=== PATIENT | male | born 1965 | race Caucasian/White ===

== ENCOUNTER 2020-02-13 19:36 | Emergency (ER) | payer BC ==
[~2020-02-13] VITALS: Ht 188 cm; Wt 111.4 kg
[2020-02-13 19:42] VITALS: BP 166/126
[2020-02-13] MEDS ORDERED: HYDROcodone/acetaminophen 10/325mg tab PO ONE (19:45)
[2020-02-13] MEDS ORDERED: TETanus/Pertussis (Acell)/Diphther VAC/PF (Tdap-Adult) 0.5ml syringe IMVAC ONE (19:45)
[2020-02-13] MEDS ORDERED: LIDOcaine 1% W/epiNEPHrine 1:100,000 20ml vial SQ ONE (20:05)
[2020-02-13] MEDS ORDERED: AMOX-422 PO (20:19)
[2020-02-13] MEDS ORDERED: amox tr/potassium clavulanate 875/125mg TAB PO ONE (20:20)
== END 2020-02-13 20:58 | disposition home or self-care (01) ==
LOC: ER 19:37
DX: S61.412A Laceration without foreign body of left hand, initial encounter (principal); Z79.2 Long term (current) use of antibiotics; X58.XXXA Exposure to other specified factors, initial encounter; Y93.89 Activity, other specified; Y92.89 Other specified places as the place of occurrence of the external cause; Y99.8 Other external cause status
CPT/HCPCS: 12001; 73130; 90471; 90715; 99283

== ENCOUNTER 2020-02-16 13:00 | Outpatient (CLI) | payer BC ==
[~2020-02-16 13:00] MED LIST: AMOX-422 PO
== END 2020-02-16 14:08 | disposition home or self-care (01) ==
LOC: WOUND CARE 13:00 → EDSTATUS 13:20 → WOUND CARE 14:08
PROVIDERS: ATTEND Nurse Practitioner
DX: S61.402A Unspecified open wound of left hand, initial encounter (principal); L98.492 Non-pressure chronic ulcer of skin of other sites with fat layer exposed; S61.432A Puncture wound without foreign body of left hand, initial encounter; F17.200 Nicotine dependence, unspecified, uncomplicated; X58.XXXA Exposure to other specified factors, initial encounter; Y93.89 Activity, other specified; Y92.89 Other specified places as the place of occurrence of the external cause; Y99.8 Other external cause status
CPT/HCPCS: G0463

== ENCOUNTER 2020-02-26 13:52 | Day surgery (SDC) | payer BC ==
[2020-02-26] MEDS ORDERED: LIDOcaine 2% 5ml jelly ONE (14:16)
== END 2020-02-26 14:26 | disposition home or self-care (01) ==
LOC: WOUND CARE 13:52
PROVIDERS: ATTEND Nurse Practitioner
DX: S61.432D Puncture wound without foreign body of left hand, subsequent encounter (principal); L98.492 Non-pressure chronic ulcer of skin of other sites with fat layer exposed; F17.200 Nicotine dependence, unspecified, uncomplicated; Z79.2 Long term (current) use of antibiotics; X58.XXXD Exposure to other specified factors, subsequent encounter
CPT/HCPCS: G0463

== ENCOUNTER 2023-01-26 12:57 | Day surgery (SDC) | payer BC ==
[2023-01-22 09:06] LABS: BASOPHILS % (AUTO) 0.6 % (0-1); EOSINOPHILS # (AUTO) 0.1 X10'3 (0-0.9); EOSINOPHILS % (AUTO) 1.7 % (0-6); HEMATOCRIT 49.6 % (42.0-52.0); HEMOGLOBIN 16.6 g/dl (14.0-17.9); LYMPHOCYTES # (AUTO) 3.3 X10'3 (1.1-4.8); LYMPHOCYTES % (AUTO) 38.8 % (21-51); MEAN CORPUSCULAR HEMOGLOBIN 31.1 PG (27.0-31.0); MEAN CORPUSCULAR HGB CONC 33.5 g/dL (33.0-36.5); MEAN CORPUSCULAR VOLUME 92.8 FL (78-98); MEAN PLATELET VOLUME 7.4 FL (7.4-10.4); MONOCYTES # (AUTO) 0.5 X10'3 (0-0.9); MONOCYTES % (AUTO) 6.2 % (2-12); NEUTROPHILS # (AUTO) 4.5 X10'3 (1.8-7.7); NEUTROPHILS % (AUTO) 52.7 % (42-75); PLATELET COUNT 251 X10'3 (140-440); RED BLOOD COUNT 5.35 X10'6 (4.70-6.10); WHITE BLOOD COUNT 8.5 X10'3 (4.5-11.0)
[2023-01-22 09:15] LABS: APTT 28 SECONDS (22-32)
[2023-01-22 09:21] LABS: ALBUMIN 4.1 G/DL (3.4-5.0); CALCIUM 9.2 MG/DL (8.5-10.1); CHOL/HDL RATIO 6.4 (0.00-4.99); CHOLESTEROL 256 MG/DL (0-200); CREATININE 0.77 MG/DL (0.60-1.10); GLUCOSE 120 MG/DL (70-104); HDL CHOLESTEROL 40 MG/DL (35-60); LDL CHOLESTEROL 149 MG/DL (50-100); POTASSIUM 4.4 MMOL/L (3.5-5.1); TOTAL CARBON DIOXIDE 29.8 MMOL/L (24-32); TRIGLYCERIDES 361 MG/DL (20-135); eGFR > 90 ML/MIN
[2023-01-22 09:25] LABS: BLOOD UREA NITROGEN 18 MG/DL (7-18); BUN/CREATININE RATIO 23.4 (10.0-20.0)
[2023-01-22 09:27] LABS: ANION GAP 5 (8-16); CHLORIDE 105 MMOL/L (99-107); SODIUM 140 MMOL/L (135-145)
[~2023-01-26] VITALS: Ht 188 cm; Wt 127.2 kg
[2023-01-26] VITALS (7 sets, daily range): BP systolic 135–158; BP diastolic 91–109
[2023-01-26] MEDS ORDERED: normal saline 1,000 ML IV SCH (13:15)
[2023-01-26] MEDS ORDERED: LORazepam 0.5 MG tablet PO PRN (13:15)
[2023-01-26] MEDS ORDERED: diphenhydrAMINE 25mg capsule PO PRN (13:15)
[2023-01-26] MEDS ORDERED: albuterol sulfate IH (13:34)
[2023-01-26] MEDS ORDERED: ASPI-803 PO (13:34)
[2023-01-26] MEDS ORDERED: HYDR-3972 PO (13:34)
[2023-01-26] MEDS ORDERED: verapamil 2.5 mg/ml inj IV ONE (14:36)
[2023-01-26] MEDS ORDERED: fentaNYL/PF 50MCG/1 ML 2ML syringe ONE (14:36)
[2023-01-26] MEDS ORDERED: midazolam 1 mg/ML 2ml injection ONE (14:37)
[2023-01-26] MEDS ORDERED: heparin 1,000 UNITS/NS 500ml 500 ML ONE ×2 (14:37)
[2023-01-26] MEDS ORDERED: heparin 1,000unit/ml 10ml vial 10 ML ONE (14:37)
[2023-01-26] MEDS ORDERED: iohexol 350MG/ML 100ml bottle IV ONE (14:37)
[2023-01-26] MEDS ORDERED: nitroGLYCERIN-Tridil 50MG/D5W 250 ML IV ONE (14:37)
[2023-01-26] MEDS ORDERED: LIDOcaine 1% (10mg/ml) 2ml vial ONE (15:21)
[2023-01-26] MEDS ORDERED: iohexol 350 MG/ML 50ML vial IV ONE (16:37)
[2023-01-26 16:39] LABS: ISTAT HGB ART 16.7 g/dl (14.0-17.9); ISTAT Hct ART 49 %PCV (42-52); ISTAT O2 SATURATION ARTERIAL 92 % (95-98); ISTAT SOURCE ART
[2023-01-26] MEDS ORDERED: HYDROcodone/acetaminophen 10/325mg tab PO PRN (17:20)
[2023-01-26] MEDS ORDERED: HYDROcodone/acetaminophen 5mg/325mg tablet PO PRN (17:20)
[2023-01-27 07:14] LABS: ISTAT Hct MIX 48 %PCV (42-52); ISTAT O2 SATURATION MIX VENOUS 65 % (60-80); ISTAT SOURCE VEN
[2023-02-12] MEDS ORDERED: ACET-2319 PO (15:01)
[2023-02-12] MEDS ORDERED: [UNRECOGNIZED DRUG - OTHER] (15:01)
[2023-02-12] MEDS ORDERED: MULT-1074 PO (16:31)
[2023-02-12] MEDS ORDERED: ALBU8HFA PO (18:14)
== END 2023-01-26 19:00 | disposition home or self-care (01) ==
LOC: SSTAY O 12:57
PROVIDERS: ATTEND Student in an Organized Health Care Education/Training Program
DX: I35.0 Nonrheumatic aortic (valve) stenosis (principal); I25.10 Atherosclerotic heart disease of native coronary artery without angina pectoris; I10 Essential (primary) hypertension; G89.29 Other chronic pain; E66.9 Obesity, unspecified; Z68.36 Body mass index [BMI] 36.0-36.9, adult; Z79.899 Other long term (current) drug therapy; Z79.01 Long term (current) use of anticoagulants
CPT/HCPCS: 36415; 80048; 80061; 82803; 85014; 85025; 85610; 85730; 93005; 93456; 99152; 99153; C1894; J1644; J2250; J3010; J3490; J7030; Q0163; Q9967; 93460; A6258; A6402; C1751

== ENCOUNTER 2023-02-15 08:00 | Inpatient (IN) | payer BC ==
[2023-02-12 13:43] LABS: CLARITY,URINE CLEAR (Clear); COLOR,URINE YELLOW (Yellow); GLUCOSE, URINE NEGATIVE (Neg); KETONES,URINE TRACE mg/dl (Neg); LEUKOCYTE ESTERASE ,URINE NEGATIVE (Neg); NITRITES, URINE NEGATIVE (Neg); OCCULT BLOOD,URINE NEGATIVE (Neg); PH,URINE 6.5 (4.8-8.0); PROTEIN,URINE NEGATIVE (Neg); UROBILINOGEN,URINE 0.2 E.U/dL (0.2-1.0)
[2023-02-12 13:47] LABS: BASOPHILS # (AUTO) 0.1 X10'3 (0-0.2); BASOPHILS % (AUTO) 0.8 % (0-1); EOSINOPHILS # (AUTO) 0.2 X10'3 (0-0.9); EOSINOPHILS % (AUTO) 2.2 % (0-6); LYMPHOCYTES # (AUTO) 3.5 X10'3 (1.1-4.8); LYMPHOCYTES % (AUTO) 38.1 % (21-51); MEAN CORPUSCULAR HEMOGLOBIN 31.8 PG (27.0-31.0); MEAN CORPUSCULAR HGB CONC 34.5 g/dL (33.0-36.5); MEAN CORPUSCULAR VOLUME 92.3 FL (78-98); MEAN PLATELET VOLUME 7.7 FL (7.4-10.4); MONOCYTES # (AUTO) 0.7 X10'3 (0-0.9); MONOCYTES % (AUTO) 8.1 % (2-12); NEUTROPHILS # (AUTO) 4.7 X10'3 (1.8-7.7); NEUTROPHILS % (AUTO) 50.8 % (42-75); PRE OP HEMATOCRIT 49.2 % (42.0-52.0); PRE OP PLATELET COUNT 242 X10'3 (140-440); RED BLOOD COUNT 5.33 X10'6 (4.70-6.10); RED CELL DISTRIBUTION WIDTH 13.8 % (11.5-14.5)
[2023-02-12 13:53] LABS: HEMOGLOBIN A1C 6.2 % (4.5-6.2)
[2023-02-12 13:56] LABS: PRE OP PROTIME 10.3 SECONDS (9.0-12.0)
[2023-02-12 13:57] LABS: UA COLLECTION TYPE CLN CATCH MIDSTREAM
[2023-02-12 13:57] LABS: ALBUMIN 4.1 G/DL (3.4-5.0); ALBUMIN/GLOBULIN RATIO 1.1 (1.1-1.5); ALKALINE PHOSPHATASE 85 IU/L (46-116); BLOOD UREA NITROGEN 20 MG/DL (7-18); BUN/CREATININE RATIO 22.7 (10.0-20.0); CALCIUM 9.1 MG/DL (8.5-10.1); CHLORIDE 102 MMOL/L (99-107); CREATININE 0.88 MG/DL (0.60-1.10); PRE OP ALT 32 U/L (30-65); PRE OP ANION GAP 9 (8-16); PRE OP AST 17 U/L (10-37); PRE OP BILIRUB, TOTAL 0.2 MG/DL (0.0-1.0); PRE OP GLUCOSE 117 MG/DL (70-104); PRE OP POTASSIUM 4.1 MMOL/L (3.4-5.1); PRE OP SODIUM 140 MMOL/L (135-145); TOTAL CARBON DIOXIDE 28.6 MMOL/L (24-32); TOTAL PROTEIN 7.8 G/DL (6.4-8.2); eGFR 90 ML/MIN
[~2023-02-15] VITALS: Ht 185.4 cm; Wt 129.7 kg
--- NOTE | 2023-02-15 05:04 | NUR ---
AT 0450 I WAS ASKED TO CALL PT. AND CANCEL HIS OR TODAY, PER MONISHA WATERS THE DIRECTOR OF OR. I TOLD HIM THAT DR. MORROW OFFICE WOULD BE IN TOUGH WITH HIM TO RESCHEDULE. I TOLD HIM IF HE WAS HAVING ANY PROBLEMS TO GO THE ER
[~2023-02-15 08:00] MED LIST changes: +ACET-2319 PO; +ALBU8HFA PO; -AMOX-422 PO; +ASPI-803 PO; +HYDR-3972 PO; +LORazepam 2 mg/ml vial IV ONE; +MULT-1074 PO; +albuterol 2.5 MG/3 ML nebule NEB ONE; +ceFAZolin inj. 3,000 MG in normal saline 100ml IV soln 100 ML IV ONE; +famotidine 20mg tablet PO ONE; +metoprolol tartrate 12.5mg (1/2 tablet) PO ONE; +mupirocin 2% nasal ointment 1gm UD NS ONE; +ringers solution, lacted 1,000 ML IV SCH; +vancomycin 1,500 MG in NS 300ml IV soln IV ONE
[2023-02-15 08:12] LABS: ABG BASE EXCESS 3.8 mmol/L (-2.0-2.0); ABG HCO3 29.8 mmol/L (22.0-26.0); ABG OXYGEN SATURATION 90.7 % (94-97); ABG PCO2 (T) 48.8 mmHg (35.0-48.0); ABG PO2 (T) 55.3 mmHg (75.0-100.0); ALLEN'S TEST NEGATIVE; FCOHb 4.5 % (0.0-3.9); FMetHb 0.2 % (0.0-1.5); FO2Hb 86.4 % (94-97); TOTAL HEMOGLOBIN 17.5 G/dl (14.0-17.9)
[2023-02-16] VITALS (9 sets, daily range): BP systolic 87–146; BP diastolic 49–100
[2023-02-16] MEDS ORDERED: vancomycin 1,500 MG in NS 300ml IV soln IV ONE (05:55)
[2023-02-16] MEDS ORDERED: ceFAZolin inj. 3,000 MG in normal saline 100ml IV soln 100 ML IV ONE (05:55)
[2023-02-16] MEDS ORDERED: calcium chloride 100 MG/1 ML inj IV ONE (07:00)
[2023-02-16] MEDS ORDERED: albumin (human) 25% 100 ML IV solution IV ONE (07:00)
[2023-02-16] MEDS ORDERED: heparin 1,000 units/ml 10ml inj ONE (07:00)
[2023-02-16] MEDS ORDERED: sodium bicarbonate (8.4%) 1 mEq/ml syringe ONE (07:00)
[2023-02-16] MEDS ORDERED: magnesium sulf 1 GM/2 ML ONE (07:00)
[2023-02-16] MEDS ORDERED: aminocaproic acid 250 MG/1 ML inj. ONE (07:00)
[2023-02-16] MEDS ORDERED: mannitol 12.5gm/50mL VIAL IV ONE (07:00)
[2023-02-16] MEDS ORDERED: heparin 10,000 units/1 ML INJ ONE (07:00)
[2023-02-16] MEDS ORDERED: LIDOcaine 2% (20 mg/ml) 5ml cardiac syringe ONE (07:00)
[2023-02-16] MEDS ORDERED: methylPREDNISolone sod succ 1000mg vial ONE (07:00)
[2023-02-16] MEDS ORDERED: potassium Cl 2 mEq/ml inj IV ONE (07:00)
[2023-02-16] MEDS ORDERED: ceFAZolin 1000mg inj ONE ×3 (11:28→18:03)
[2023-02-16] MEDS ORDERED: epiNEPHrine 1 mg/ml inj ONE (11:28)
[2023-02-16] MEDS ORDERED: albuterol 2.5 MG/3 ML nebule NEB ONE (13:25)
[2023-02-16] MEDS ORDERED: MIDAZolam 1mg/ml 10ml vial ONE (13:26)
[2023-02-16] MEDS ORDERED: SUfentanil 50mcg/ml 1ml amp IV ONE (13:27)
[2023-02-16] MEDS ORDERED: DOBUTamine/D5W 500mg/250ml premix IV ONE (13:52)
[2023-02-16] MEDS ORDERED: NORepinephrine 8 MG in NS 250 ML BAG (32 mcg/ml) IV ONE (13:52)
[2023-02-16] MEDS ORDERED: isoflurane 100ml inhalation liquid IH ONE (13:52)
[2023-02-16] MEDS ORDERED: rocuronium 10mg/ml inj IV ONE ×6 (13:52→18:02)
[2023-02-16] MEDS ORDERED: BUPIVAcaine/PF 2.5 mg/ml (0.25%) 30ml vial ONE ×2 (13:52→15:05)
[2023-02-16] MEDS ORDERED: nitroGLYCERIN in D5W 50mg/250ml (Tridil) infusion IV ONE (13:52)
[2023-02-16] MEDS ORDERED: protamine sulf. 10mg/ml inj. IV ONE (13:52)
[2023-02-16 15:13] LABS: ABG BASE EXCESS 1.4 mmol/L (-2.0-2.0); ABG HCO3 26.4 mmol/L (22.0-26.0); ABG OXYGEN SATURATION 99.4 % (94-97); ABG PCO2 43.1 mmHg (35.0-48.0); ABG PO2 204.2 mmHg (75.0-100.0); CL (ABG) 100 mmol/L (99-107); FCOHb 3.4 % (0.0-3.9); FMetHb 0.3 % (0.0-1.5); FO2Hb 95.7 % (94-97); GLUCOSE (ABG) 100 mg/dl (70-104); IONIZED CA (ABG) 1.12 mmol/L (1.10-1.30); TOTAL HEMOGLOBIN 16.3 G/dl (14.0-17.9)
[2023-02-16 15:28] LABS: ACT @ 1.70 U 242 SEC (193-297); ACT @ 2.84 U 343 SEC (260-420); BASELINE ACT 142 SEC (101-148)
[2023-02-16 16:15] LABS: ABG BASE EXCESS 2.4 mmol/L (-2.0-2.0); ABG HCO3 27.4 mmol/L (22.0-26.0); ABG OXYGEN SATURATION 99.7 % (94-97); ABG PO2 407.1 mmHg (75.0-100.0); CL (ABG) 98 mmol/L (99-107); FCOHb 2.9 % (0.0-3.9); FMetHb 0.3 % (0.0-1.5); FO2Hb 96.5 % (94-97); GLUCOSE (ABG) 104 mg/dl (70-104); IONIZED CA (ABG) 0.98 mmol/L (1.10-1.30); K (ABG) 3.6 mmol/L (3.5-5.1)
[2023-02-16] MEDS ORDERED: propofol 1000mg/100ml bottle 100 ML IV SCH (16:50)
[2023-02-16] MEDS ORDERED: FENTANYL-0.9 % NACL/PF 100 ML IV PRN (16:50)
[2023-02-16] MEDS ORDERED: fentaNYL/PF 50MCG/1 ML 2ML syringe IV PRN (16:50)
[2023-02-16] MEDS ORDERED: midazolam 1 mg/ML 2ml injection IV PRN (16:50)
[2023-02-16 17:19] LABS: ABG BASE EXCESS VENOUS 2.4 mmol/L (-2.0 - 2.0); ABG HCO3 VENOUS 28.1 mmol/L (21.0-28.0); ABG PCO2 VENOUS 48.1 mmHg (41.0-54.0); ABG PO2 VENOUS 48.1 mmHg (25.0-35.0); CL (ABG) 99 mmol/L (99-107); FCOHb VENOUS 3.1 %; FHHb VENOUS 15.9 %; FMetHb VENOUS 0.3 % (0.0 - 0.5); FO2Hb VENOUS 80.7 %; GLUCOSE (ABG) 162 mg/dl (70-104); IONIZED CA (ABG) 1.03 mmol/L (1.10-1.30); K (ABG) 5.1 mmol/L (3.5-5.1); TOTAL HEMOGLOBIN 12.3 G/dl (14.0-17.9)
[2023-02-16] MEDS ORDERED: insulin regular, human U-100 3ml vial - multi-dose ONE (17:22)
[2023-02-16 17:48] LABS: ABG BASE EXCESS 0.1 mmol/L (-2.0-2.0); ABG HCO3 26.3 mmol/L (22.0-26.0); ABG OXYGEN SATURATION 99.4 % (94-97); ABG PCO2 49.2 mmHg (35.0-48.0); ABG PO2 198.7 mmHg (75.0-100.0); CL (ABG) 99 mmol/L (99-107); FCOHb 2.9 % (0.0-3.9); FMetHb 0.3 % (0.0-1.5); FO2Hb 96.2 % (94-97); GLUCOSE (ABG) 181 mg/dl (70-104); IONIZED CA (ABG) 1.05 mmol/L (1.10-1.30); K (ABG) 3.8 mmol/L (3.5-5.1); TOTAL HEMOGLOBIN 12.9 G/dl (14.0-17.9)
[2023-02-16] MEDS ORDERED: phenylephrine 10mg/ml inj. -priapism dosing ONE (18:02)
[2023-02-16] MEDS ORDERED: LIDOcaine 2% (20mg/ml) 5ml vial ONE (18:02)
[2023-02-16] MEDS ORDERED: metoprolol tartrate 1mg/ml inj IV ONE (18:02)
[2023-02-16] MEDS ORDERED: 0.9 % SODIUM CHLORIDE 10 ML VIAL ONE (18:02)
[2023-02-16] MEDS ORDERED: propofol inj 20 ML IV ONE (18:03)
[2023-02-16 18:16] LABS: ABG BASE EXCESS -0.2 mmol/L (-2.0-2.0); ABG HCO3 25.8 mmol/L (22.0-26.0); ABG OXYGEN SATURATION 99.3 % (94-97); ABG PCO2 47.5 mmHg (35.0-48.0); ABG PO2 261.4 mmHg (75.0-100.0); CL (ABG) 99 mmol/L (99-107); FCOHb 2.4 % (0.0-3.9); FMetHb 0.3 % (0.0-1.5); FO2Hb 96.6 % (94-97); GLUCOSE (ABG) 143 mg/dl (70-104); IONIZED CA (ABG) 1.31 mmol/L (1.10-1.30); K (ABG) 3.8 mmol/L (3.5-5.1); TOTAL HEMOGLOBIN 11.2 G/dl (14.0-17.9)
[2023-02-16 18:39] LABS: ABG BASE EXCESS -1.2 mmol/L (-2.0-2.0); ABG OXYGEN SATURATION 98.6 % (94-97); ABG PCO2 48.6 mmHg (35.0-48.0); ABG PO2 145.8 mmHg (75.0-100.0); CL (ABG) 101 mmol/L (99-107); FCOHb 2.1 % (0.0-3.9); FMetHb 0.3 % (0.0-1.5); FO2Hb 96.2 % (94-97); GLUCOSE (ABG) 136 mg/dl (70-104); IONIZED CA (ABG) 1.13 mmol/L (1.10-1.30); K (ABG) 3.6 mmol/L (3.5-5.1); TOTAL HEMOGLOBIN 11.3 G/dl (14.0-17.9)
[2023-02-16 18:42] LABS: ACTIVATED CLOTTING TIME 123 SEC (101-148)
[2023-02-16] MEDS ORDERED: dextrose 50%-water 50ml dispensing syringe IV PRN (19:15)
[2023-02-16] MEDS ORDERED: HYDROcodone/acetaminophen 10/325mg tab PO PRN (19:15)
[2023-02-16] MEDS ORDERED: potassium Cl 40MEQ/1/2NS 520ml 520 ML IV PRN (19:15)
[2023-02-16] MEDS ORDERED: sodium phosphate inj. 15 MMOL in dextrose 5%-water 250 ML IV PRN (19:15)
[2023-02-16] MEDS ORDERED: magnesium 4gm in 100ml NS 100 ML IV PRN (19:15)
[2023-02-16] MEDS ORDERED: sodium phosphate inj. 30 MMOL in dextrose 5%-water 250 ML IV PRN (19:15)
[2023-02-16] MEDS ORDERED: potassium CL 10mEq/100ml bag 100 ML IV PRN (19:15)
[2023-02-16] MEDS ORDERED: magnesium 2GM in 50ml NS 50 ML IV PRN (19:15)
[2023-02-16] MEDS ORDERED: potassium Cl 20mEq/100mL bag 100 ML IV PRN (19:15)
[2023-02-16] MEDS ORDERED: Neutra Phos packet PO PRN (19:15)
[2023-02-16] MEDS ORDERED: nitroGLYCERIN-Tridil 50MG/D5W 250 ML IV SCH (19:15)
[2023-02-16] MEDS ORDERED: Insulin Reg/NS 100units/100mL 100 ML IV SCH (19:15)
[2023-02-16] MEDS ORDERED: metoclopramide 5 mg/ml inj IV PRN (19:15)
[2023-02-16] MEDS ORDERED: sodium chloride 0.45% 1,000 ML IV SCH (19:15)
[2023-02-16] MEDS ORDERED: mineral oil 133ml enema RC PRN (19:15)
[2023-02-16] MEDS ORDERED: morphine 2 MG/ML inj. syringe IV PRN (19:15)
[2023-02-16] MEDS ORDERED: potassium Cl 20 mEq SR tablet PO PRN (19:15)
[2023-02-16] MEDS ORDERED: niCARDipine-NS 40mg/200ml IVPB 200 ML IV PRN (19:15)
[2023-02-16] MEDS ORDERED: acetaminophen 325mg tablet PO PRN ×2 (19:15)
[2023-02-16] MEDS ORDERED: bisacodyl 10mg suppository rectal RC PRN (19:15)
[2023-02-16] MEDS ORDERED: magnesium hydroxide 30ml (MOM) UD suspension PO PRN (19:15)
[2023-02-16] MEDS ORDERED: insulin glargine (Lantus) pen - multi-dose SQ PRN (19:15)
[2023-02-16] MEDS ORDERED: potassium Cl 40MEQ/270ML bag 250 ML IV PRN (19:15)
[2023-02-16] MEDS ORDERED: dexamethasone sod phosphate 4mg/ml inj. ONE (19:18)
[2023-02-16] MEDS ORDERED: ondansetron/PF 4mg/2ml inj ONE (19:18)
--- NOTE | 2023-02-16 19:50 | NUR ---
Pt dropped off from [facility] with OR crew and anesthesia. Report given. Pt connected to monitor. On Norepi and Dobutamine. HR 120. Getting cellsaver and platelets now. CT [address] with 260. present as all. Said pt will need volume so give up to 1L of albumin and then call him if necessary.
[2023-02-16 20:00] LABS: ABG BASE EXCESS -2.3 mmol/L (-2.0-2.0); ABG HCO3 25.3 mmol/L (22.0-26.0); ABG PCO2 (T) 55.2 mmHg (35.0-48.0); FCOHb 1.5 % (0.0-3.9); FMetHb 0.4 % (0.0-1.5); FO2Hb 97.1 % (94-97); PEEP 5 cm H2O; RESPIRATORY RATE 14 b/min; TIDAL VOLUME 600 mL; TOTAL HEMOGLOBIN 13.9 G/dl (14.0-17.9)
[2023-02-16 20:15] LABS: BASOPHILS % (AUTO) 0.1 % (0-1); EOSINOPHILS # (AUTO) 0.1 X10'3 (0-0.9); EOSINOPHILS % (AUTO) 0.4 % (0-6); HEMATOCRIT 39.6 % (42.0-52.0); HEMOGLOBIN 13.1 g/dl (14.0-17.9); LYMPHOCYTES # (AUTO) 3.1 X10'3 (1.1-4.8); LYMPHOCYTES % (AUTO) 16.1 % (21-51); MEAN PLATELET VOLUME 8.4 FL (7.4-10.4); MONOCYTES # (AUTO) 1.1 X10'3 (0-0.9); MONOCYTES % (AUTO) 5.8 % (2-12); NEUTROPHILS # (AUTO) 14.9 X10'3 (1.8-7.7); NEUTROPHILS % (AUTO) 77.6 % (42-75); PLATELET COUNT 241 X10'3 (140-440); RED BLOOD COUNT 4.21 X10'6 (4.70-6.10); RED CELL DISTRIBUTION WIDTH 13.6 % (11.5-14.5); WHITE BLOOD COUNT 19.2 X10'3 (4.5-11.0)
[2023-02-16] MEDS: morphine 4 MG/ML inj SYRINge IV PRN ×4 (20:19→23:20)
[2023-02-16] MEDS: albumin (Human) 5% 250ml 250 ML IV PRN ×4 (20:20→21:06)
[2023-02-16 20:22] LABS: ALANINE AMINOTRANSFERASE 20 U/L (12-78); ALBUMIN 2.9 G/DL (3.4-5.0); ALBUMIN/GLOBULIN RATIO 1.3 (1.1-1.5); ALKALINE PHOSPHATASE 44 IU/L (46-116); ANION GAP 11 (8-16); BILIRUBIN,TOTAL 0.6 MG/DL (0.1-1.0); BLOOD UREA NITROGEN 17 MG/DL (7-18); BUN/CREATININE RATIO 17.9 (10.0-20.0); CALCIUM 7.8 MG/DL (8.5-10.1); CHLORIDE 104 MMOL/L (99-107); CREATININE 0.95 MG/DL (0.60-1.10); GLUCOSE 287 MG/DL (70-104); MAGNESIUM 2.9 MG/DL (1.5-2.4); SODIUM 141 MMOL/L (135-145); TOTAL CARBON DIOXIDE 26.5 MMOL/L (24-32); TOTAL PROTEIN 5.2 G/DL (6.4-8.2); eGFR 82 ML/MIN
[2023-02-16 20:24] LABS: APTT 30 SECONDS (22-32)
[2023-02-16 20:25] LABS: ASPARTATE AMINO TRANSFERASE 36 U/L (10-37); PHOSPHORUS 4.7 MG/DL (2.3-4.5)
[2023-02-16] MEDS: atorvastatin 10mg tablet PO SCH (20:39)
[2023-02-16] MEDS: sennosides/docusate sodium tablet PO SCH (20:39)
[2023-02-16] MEDS: mupirocin 2% nasal ointment 1gm UD NS SCH (20:40)
[2023-02-16] MEDS: Insulin Reg/NS 100units/100mL 100 ML IV SCH (20:52)
[2023-02-16] MEDS ORDERED: Potassium Cl 40 MEQ in normal saline IV soln 270 ML IV ONE (21:00)
[2023-02-16] MEDS: vancomycin/NS 1 GM ADD-VANTAGE 250 ML IV SCH (21:06)
[2023-02-16] MEDS ORDERED: NORepinephrine 8mg/ 250ml NS 250 ML IV SCH (21:40)
--- NOTE | 2023-02-16 21:42 | NUR ---
Dr. benítez notified pt has gotten 1L of albumin. Still on norepi from anesthesia, was OK with this. Stated as long as his CI is > 2.5 to use norepi.
[2023-02-16] MEDS: NORepinephrine 8mg/ 250ml NS 250 ML IV PRN (21:46)
[2023-02-16] MEDS: ondansetron/PF 4mg/2ml inj IV PRN (22:10)
[2023-02-16] MEDS ORDERED: albumin (Human) 5% 250ml 250 ML IV ONE ×2 (23:15)
[2023-02-16 23:24] LABS: EOSINOPHILS % (AUTO) 0 % (0-6); MEAN CORPUSCULAR HEMOGLOBIN 31.2 PG (27.0-31.0)
[2023-02-16 23:25] LABS: BASOPHILS % (AUTO) 0.1 % (0-1); HEMATOCRIT 33.4 % (42.0-52.0); LYMPHOCYTES # (AUTO) 1.7 X10'3 (1.1-4.8); LYMPHOCYTES % (AUTO) 11.1 % (21-51); MEAN CORPUSCULAR VOLUME 94.7 FL (78-98); MEAN PLATELET VOLUME 8.1 FL (7.4-10.4); MONOCYTES # (AUTO) 0.8 X10'3 (0-0.9); NEUTROPHILS # (AUTO) 12.8 X10'3 (1.8-7.7); NEUTROPHILS % (AUTO) 83.8 % (42-75); PLATELET COUNT 207 X10'3 (140-440); RED BLOOD COUNT 3.53 X10'6 (4.70-6.10); RED CELL DISTRIBUTION WIDTH 13.5 % (11.5-14.5); WHITE BLOOD COUNT 15.2 X10'3 (4.5-11.0)
[2023-02-16 23:38] LABS: APTT 30 SECONDS (22-32)
--- NOTE | 2023-02-16 23:39 | NUR ---
Dr. Jacobs made aware pt was getting hypotensive and CI< 2.5. Order to give 2 albumins. Also made aware the pt has had 200 output from the left smaller bore chest tube. Order to send CBC and coags.
[2023-02-16 23:45] LABS: TOTAL CELLS COUNTED 100
[2023-02-16 23:46] LABS: PLATELET ESTIMATE NORMAL; SMUDGE CELLS FEW; TOXIC VACUOLATION FEW
[2023-02-17] VITALS (28 sets, daily range): BP systolic 78–125; BP diastolic 5–76
[2023-02-17] MEDS: morphine 4 MG/ML inj SYRINge IV PRN ×7 (00:13→23:43)
[2023-02-17] MEDS: ceFAZolin/D5W- 1GM premix 50 ML IV SCH ×4 (00:52→23:54)
[2023-02-17 00:53] LABS: ABG BASE EXCESS -7.3 mmol/L (-2.0-2.0); ABG HCO3 21.3 mmol/L (22.0-26.0); ABG OXYGEN SATURATION 93.2 % (94-97); ABG PCO2 (T) 59.9 mmHg (35.0-48.0); ABG PO2 (T) 85.1 mmHg (75.0-100.0); FCOHb 0.2 % (0.0-3.9); FMetHb 0.3 % (0.0-1.5); FO2Hb 92.7 % (94-97); PATIENT TEMPERATURE 37.4; PEEP 5 cm H2O; TOTAL HEMOGLOBIN 10.5 G/dl (14.0-17.9)
--- NOTE | 2023-02-17 01:13 | NUR ---
Dr. Jacobs notified of ABG results. Leave intubated for now. OK to start precedex as needed. made aware the pt has 800 and 750 out of his chest tubes and had 280 out of his mediastinal chest tube last hour.
[2023-02-17] MEDS: dexmedetomidine inj. 400 MCG in normal saline 100ml IV soln 96 ML IV SCH ×3 (01:45→18:42)
[2023-02-17 01:51] LABS: BASOPHILS % (AUTO) 0.1 % (0-1); EOSINOPHILS % (AUTO) 0.1 % (0-6); HEMATOCRIT 27.4 % (42.0-52.0); LYMPHOCYTES # (AUTO) 0.8 X10'3 (1.1-4.8); LYMPHOCYTES % (AUTO) 6.6 % (21-51); MEAN CORPUSCULAR HGB CONC 32.9 g/dL (33.0-36.5); MEAN CORPUSCULAR VOLUME 94.2 FL (78-98); MEAN PLATELET VOLUME 7.9 FL (7.4-10.4); MONOCYTES # (AUTO) 0.5 X10'3 (0-0.9); MONOCYTES % (AUTO) 4.1 % (2-12); NEUTROPHILS # (AUTO) 11.1 X10'3 (1.8-7.7); NEUTROPHILS % (AUTO) 89.1 % (42-75); PLATELET COUNT 177 X10'3 (140-440); RED BLOOD COUNT 2.91 X10'6 (4.70-6.10); RED CELL DISTRIBUTION WIDTH 13.5 % (11.5-14.5); WHITE BLOOD COUNT 12.5 X10'3 (4.5-11.0)
[2023-02-17 02:04] LABS: ALANINE AMINOTRANSFERASE 24 U/L (12-78); ALBUMIN 4.1 G/DL (3.4-5.0); ALBUMIN/GLOBULIN RATIO 2.2 (1.1-1.5); ALKALINE PHOSPHATASE 35 IU/L (46-116); ANION GAP 12 (8-16); APTT 28 SECONDS (22-32); ASPARTATE AMINO TRANSFERASE 35 U/L (10-37); BILIRUBIN,TOTAL 0.4 MG/DL (0.1-1.0); BLOOD UREA NITROGEN 20 MG/DL (7-18); BUN/CREATININE RATIO 14.1 (10.0-20.0); CALCIUM 7.5 MG/DL (8.5-10.1); CHLORIDE 107 MMOL/L (99-107); CREATININE 1.42 MG/DL (0.60-1.10); GLUCOSE 181 MG/DL (70-104); MAGNESIUM 2.5 MG/DL (1.5-2.4); PHOSPHORUS 4.5 MG/DL (2.3-4.5); POTASSIUM 5.5 MMOL/L (3.5-5.1); SODIUM 143 MMOL/L (135-145); TOTAL CARBON DIOXIDE 23.6 MMOL/L (24-32); TRIGLYCERIDES 174 MG/DL (20-135); eGFR 52 ML/MIN
[2023-02-17] MEDS: NORepinephrine 8mg/ 250ml NS 250 ML IV PRN (02:22)
[2023-02-17] MEDS: Insulin Reg/NS 100units/100mL 100 ML IV SCH (02:22)
[2023-02-17] MEDS: HYDROcodone/acetaminophen 10/325mg tab PO PRN ×5 (04:00→23:52)
[2023-02-17 05:03] LABS: ABG BASE EXCESS -2.4 mmol/L (-2.0-2.0); ABG HCO3 23.8 mmol/L (22.0-26.0); ABG OXYGEN SATURATION 93.1 % (94-97); ABG PCO2 (T) 49.8 mmHg (35.0-48.0); ABG PO2 (T) 82.1 mmHg (75.0-100.0); FCOHb 0.3 % (0.0-3.9); FMetHb 0.5 % (0.0-1.5); FO2Hb 92.4 % (94-97); PATIENT TEMPERATURE 38.1; PEEP 5 cm H2O; TOTAL HEMOGLOBIN 9.5 G/dl (14.0-17.9)
[2023-02-17] MEDS: albumin (Human) 5% 250ml 250 ML IV PRN (07:18)
[2023-02-17] MEDS: vancomycin/NS 1 GM ADD-VANTAGE 250 ML IV SCH ×2 (07:21→19:07)
[2023-02-17] MEDS: mupirocin 2% nasal ointment 1gm UD NS SCH ×2 (07:21→19:08)
[2023-02-17] MEDS: sennosides/docusate sodium tablet PO SCH ×3 (07:22→19:09)
[2023-02-17] MEDS: metoprolol tartrate 12.5mg (1/2 tablet) PO SCH ×2 (07:39→19:06)
[2023-02-17] MEDS: aspirin 81mg tab.chew PO SCH (07:39)
[2023-02-17 08:36] LABS: ABG BASE EXCESS -0.8 mmol/L (-2.0-2.0); ABG HCO3 25.3 mmol/L (22.0-26.0); ABG OXYGEN SATURATION 88.4 % (94-97); ABG PCO2 (T) 51.4 mmHg (35.0-48.0); ABG PO2 (T) 65.2 mmHg (75.0-100.0); FCOHb 0.3 % (0.0-3.9); FMetHb 0.5 % (0.0-1.5); FO2Hb 87.7 % (94-97); PATIENT TEMPERATURE 38.1; PEEP 5 cm H2O; TIDAL VOLUME 517 mL; TOTAL HEMOGLOBIN 8.8 G/dl (14.0-17.9)
--- NOTE | 2023-02-17 08:43 | NUR ---
ABG results addressed with Dr Jacobs. Order given to extubate.
[2023-02-17 09:12] LABS: BASOPHILS % (AUTO) 0 % (0-1); EOSINOPHILS % (AUTO) 0 % (0-6); HEMATOCRIT 23.4 % (42.0-52.0); HEMOGLOBIN 7.8 g/dl (14.0-17.9); LYMPHOCYTES # (AUTO) 1.1 X10'3 (1.1-4.8); LYMPHOCYTES % (AUTO) 8.3 % (21-51); MEAN CORPUSCULAR HEMOGLOBIN 31.2 PG (27.0-31.0); MEAN CORPUSCULAR HGB CONC 33.3 g/dL (33.0-36.5); MEAN CORPUSCULAR VOLUME 93.8 FL (78-98); MEAN PLATELET VOLUME 8.1 FL (7.4-10.4); MONOCYTES # (AUTO) 0.6 X10'3 (0-0.9); MONOCYTES % (AUTO) 4.8 % (2-12); NEUTROPHILS # (AUTO) 11.1 X10'3 (1.8-7.7); NEUTROPHILS % (AUTO) 86.9 % (42-75); PLATELET COUNT 131 X10'3 (140-440); RED CELL DISTRIBUTION WIDTH 13.5 % (11.5-14.5); WHITE BLOOD COUNT 12.7 X10'3 (4.5-11.0)
[2023-02-17 09:31] LABS: ALANINE AMINOTRANSFERASE 24 U/L (12-78); ALBUMIN 3.8 G/DL (3.4-5.0); ALKALINE PHOSPHATASE 31 IU/L (46-116); ANION GAP 8 (8-16); ASPARTATE AMINO TRANSFERASE 45 U/L (10-37); BILIRUBIN,TOTAL 0.3 MG/DL (0.1-1.0); BLOOD UREA NITROGEN 23 MG/DL (7-18); BUN/CREATININE RATIO 18.5 (10.0-20.0); CALCIUM 7.3 MG/DL (8.5-10.1); CHLORIDE 107 MMOL/L (99-107); CREATININE 1.24 MG/DL (0.60-1.10); GLUCOSE 169 MG/DL (70-104); POTASSIUM 5.5 MMOL/L (3.5-5.1); SODIUM 142 MMOL/L (135-145); TOTAL CARBON DIOXIDE 26.7 MMOL/L (24-32); TOTAL PROTEIN 5.7 G/DL (6.4-8.2); eGFR 60 ML/MIN
--- NOTE | 2023-02-17 10:41 | NUR ---
Nutrition consult: Per EMR pt POD #1 s/p CABG x 4 and AVR. Pt just extubated this morning at 0845. Noted last lipid panel 01/22: TG 174, CHOL 256, LDL 149, and HDL WNL. Pt would benefit from post CABG nutrition therapy education once more appropriate. Will continue to follow. Addendum: 02/17/23 at [address] Amended: Links added.
[2023-02-17] MEDS ORDERED: niCARDipine-NS 40mg/200ml IVPB 200 ML IV PRN (11:02)
[2023-02-17] MEDS ORDERED: dextrose 50%-water 50ml dispensing syringe IV PRN ×2 (11:35)
[2023-02-17] MEDS: albuterol 2.5 MG/3 ML nebule NEB PRN (12:32)
[2023-02-17] MEDS ORDERED: ketorolac trometh. 30mg/ml inj. IV ONE (18:40)
[2023-02-17] MEDS: mineral oil/petrolatum ophthal oint EACHEYE SCH (18:43)
[2023-02-17] MEDS: atorvastatin 10mg tablet PO SCH (19:05)
[2023-02-17] MEDS: nicotine 14mg patch - 24hr TD SCH (21:28)
[2023-02-18] VITALS (25 sets, daily range): BP systolic 104–148; BP diastolic 50–95
[2023-02-18] MEDS: mineral oil/petrolatum ophthal oint EACHEYE SCH ×2 (00:52→08:00)
[2023-02-18] MEDS: dexmedetomidine inj. 400 MCG in normal saline 100ml IV soln 96 ML IV SCH (00:52)
[2023-02-18] MEDS: morphine 4 MG/ML inj SYRINge IV PRN ×2 (02:35→07:05)
[2023-02-18 02:54] LABS: ALBUMIN 3.8 G/DL (3.4-5.0); ANION GAP 7 (8-16); BLOOD UREA NITROGEN 37 MG/DL (7-18); BUN/CREATININE RATIO 27.6 (10.0-20.0); CALCIUM 7.6 MG/DL (8.5-10.1); CHLORIDE 101 MMOL/L (99-107); CREATININE 1.34 MG/DL (0.60-1.10); GLUCOSE 178 MG/DL (70-104); MAGNESIUM 2.4 MG/DL (1.5-2.4); POTASSIUM 5.4 MMOL/L (3.5-5.1); SODIUM 136 MMOL/L (135-145); TOTAL CARBON DIOXIDE 28.4 MMOL/L (24-32); eGFR 55 ML/MIN
[2023-02-18 03:06] LABS: BASOPHILS % (AUTO) 0.2 % (0-1); EOSINOPHILS % (AUTO) 0 % (0-6); LYMPHOCYTES % (AUTO) 13.1 % (21-51); MEAN CORPUSCULAR HEMOGLOBIN 31.1 PG (27.0-31.0); MEAN CORPUSCULAR HGB CONC 33.2 g/dL (33.0-36.5); MEAN CORPUSCULAR VOLUME 93.7 FL (78-98); MEAN PLATELET VOLUME 8.1 FL (7.4-10.4); MONOCYTES # (AUTO) 1.6 X10'3 (0-0.9); MONOCYTES % (AUTO) 10.6 % (2-12); NEUTROPHILS # (AUTO) 11.5 X10'3 (1.8-7.7); NEUTROPHILS % (AUTO) 76.1 % (42-75); PLATELET COUNT 107 X10'3 (140-440); RED BLOOD COUNT 2.22 X10'6 (4.70-6.10); RED CELL DISTRIBUTION WIDTH 13.5 % (11.5-14.5); WHITE BLOOD COUNT 15.1 X10'3 (4.5-11.0)
[2023-02-18 03:11] LABS: HEMATOCRIT 20.8 % (42.0-52.0); HEMOGLOBIN 6.9 g/dl (14.0-17.9)
[2023-02-18] MEDS: ondansetron/PF 4mg/2ml inj IV PRN (03:19)
[2023-02-18] MEDS: HYDROcodone/acetaminophen 10/325mg tab PO PRN ×4 (03:37→18:57)
[2023-02-18] MEDS: mupirocin 2% nasal ointment 1gm UD NS SCH (07:04)
[2023-02-18] MEDS: ceFAZolin/D5W- 1GM premix 50 ML IV SCH (07:04)
[2023-02-18] MEDS: pantoprazole 40mg Tablet.DR PO SCH (07:05)
[2023-02-18] MEDS: sennosides/docusate sodium tablet PO SCH ×2 (07:05→18:26)
[2023-02-18] MEDS: metoprolol tartrate 12.5mg (1/2 tablet) PO SCH (07:05)
[2023-02-18] MEDS: aspirin 81mg tab.chew PO SCH (07:38)
[2023-02-18] MEDS ORDERED: potassium Cl 20 mEq SR tablet PO PRN ×2 (07:50)
[2023-02-18] MEDS ORDERED: magnesium 2GM in 50ml NS 50 ML IV PRN (07:50)
[2023-02-18] MEDS ORDERED: potassium CL 10mEq/100ml bag 100 ML IV PRN (07:50)
[2023-02-18] MEDS ORDERED: potassium Cl 40MEQ/270ML bag 250 ML IV PRN (07:50)
[2023-02-18] MEDS ORDERED: potassium Cl 40MEQ/1/2NS 520ml 520 ML IV PRN (07:50)
[2023-02-18] MEDS ORDERED: magnesium 4gm in 100ml NS 100 ML IV PRN (07:50)
[2023-02-18] MEDS ORDERED: potassium Cl 20mEq/100mL bag 100 ML IV PRN (07:50)
[2023-02-18] MEDS: magnesium Cl slow-release 64mg tablet PO SCH ×2 (08:00→18:27)
[2023-02-18] MEDS: metoprolol tartrate 25mg tablet PO SCH ×2 (08:00→18:57)
[2023-02-18] MEDS: insulin Lispro (HumaLOG) vial - multi-dose SQ SCH (08:42)
[2023-02-18] MEDS: oxyCODONE IR 5mg (immed. release) tablet PO PRN ×3 (10:42→23:46)
[2023-02-18] MEDS: albuterol 2.5 MG/3 ML nebule NEB PRN (11:26)
--- NOTE | 2023-02-18 11:26 | NUR ---
Nutrition consult: Pt seen at bedside with SO present for written and verbal post CABG nutrition therapy education. Pt appears very SOB during RD visit and in discomfort which pt attributes to just getting chest tubes removed. Pt states appetite has been low since surgery and agrees to chocolate Ensure Enlive TID and Mathew shake BIDLD during admit to optimize nutrient intake and assist with wound healing, to be sent pending physician approval in EMR. Pt denies food allergies, difficulty chewing/swallowing, or difficulty feeding self with incision site. Pt provided with RD contact information and encouraged to reach out if needed. Will continue to follow. Addendum: 02/18/23 at [address] Amended: Links added.
[2023-02-18 12:04] LABS: BASOPHILS % (AUTO) 0.1 % (0-1); EOSINOPHILS % (AUTO) 0 % (0-6); HEMATOCRIT 25.6 % (42.0-52.0); HEMOGLOBIN 8.4 g/dl (14.0-17.9); LYMPHOCYTES # (AUTO) 1.9 X10'3 (1.1-4.8); LYMPHOCYTES % (AUTO) 11.3 % (21-51); MEAN CORPUSCULAR HEMOGLOBIN 30.8 PG (27.0-31.0); MEAN CORPUSCULAR VOLUME 93.3 FL (78-98); MEAN PLATELET VOLUME 8.5 FL (7.4-10.4); MONOCYTES # (AUTO) 1.8 X10'3 (0-0.9); MONOCYTES % (AUTO) 10.4 % (2-12); NEUTROPHILS # (AUTO) 13.3 X10'3 (1.8-7.7); NEUTROPHILS % (AUTO) 78.2 % (42-75); PLATELET COUNT 114 X10'3 (140-440); RED BLOOD COUNT 2.74 X10'6 (4.70-6.10); RED CELL DISTRIBUTION WIDTH 13.7 % (11.5-14.5); WHITE BLOOD COUNT 17.1 X10'3 (4.5-11.0)
[2023-02-18] MEDS: JUVEN Shake w/Arg/Glut/Ca2+Bmb (Juven 19.3gm) pkt 240ml PO SCH ×2 (12:30→17:30)
[2023-02-18] MEDS: lactose-reduced food (Ensure Enlive) - 237ml bottle PO SCH ×2 (13:00→18:00)
[2023-02-18] MEDS ORDERED: HYDROcodone/acetaminophen 10/325mg tab PO PRN (13:00)
[2023-02-18] MEDS: atorvastatin 10mg tablet PO SCH (18:57)
[2023-02-18] MEDS: nicotine 14mg patch - 24hr TD SCH (18:58)
[2023-02-19] VITALS (16 sets, daily range): BP systolic 113–164; BP diastolic 74–106
[2023-02-19] MEDS: HYDROcodone/acetaminophen 10/325mg tab PO PRN ×6 (00:51→23:01)
[2023-02-19 01:09] LABS: ALBUMIN 3.6 G/DL (3.4-5.0); ANION GAP 5 (8-16); BLOOD UREA NITROGEN 27 MG/DL (7-18); CALCIUM 8.1 MG/DL (8.5-10.1); CHLORIDE 99 MMOL/L (99-107); CREATININE 0.87 MG/DL (0.60-1.10); GLUCOSE 210 MG/DL (70-104); POTASSIUM 5.2 MMOL/L (3.5-5.1); SODIUM 134 MMOL/L (135-145); TOTAL CARBON DIOXIDE 29.7 MMOL/L (24-32); eGFR > 90 ML/MIN
[2023-02-19 01:15] LABS: BASOPHILS % (AUTO) 0.1 % (0-1); EOSINOPHILS % (AUTO) 0 % (0-6); HEMOGLOBIN 8.3 g/dl (14.0-17.9); LYMPHOCYTES # (AUTO) 1.2 X10'3 (1.1-4.8); MEAN CORPUSCULAR HEMOGLOBIN 30.8 PG (27.0-31.0); MEAN CORPUSCULAR HGB CONC 33.2 g/dL (33.0-36.5); MEAN CORPUSCULAR VOLUME 92.9 FL (78-98); MEAN PLATELET VOLUME 8.3 FL (7.4-10.4); MONOCYTES # (AUTO) 1.2 X10'3 (0-0.9); MONOCYTES % (AUTO) 7.1 % (2-12); NEUTROPHILS % (AUTO) 85.8 % (42-75); PLATELET COUNT 114 X10'3 (140-440); RED BLOOD COUNT 2.69 X10'6 (4.70-6.10); WHITE BLOOD COUNT 17.5 X10'3 (4.5-11.0)
[2023-02-19 06:37] LABS: MAGNESIUM 2.6 MG/DL (1.5-2.4)
[2023-02-19] MEDS: magnesium Cl slow-release 64mg tablet PO SCH ×2 (07:04→20:59)
[2023-02-19] MEDS: lactose-reduced food (Ensure Enlive) - 237ml bottle PO SCH ×3 (08:00→18:55)
[2023-02-19] MEDS: sennosides/docusate sodium tablet PO SCH ×2 (08:18→20:59)
[2023-02-19] MEDS: metoprolol tartrate 25mg tablet PO SCH ×2 (08:18→21:00)
[2023-02-19] MEDS: nicotine 14mg patch - 24hr TD SCH ×2 (08:19→21:01)
[2023-02-19] MEDS: oxyCODONE IR 5mg (immed. release) tablet PO PRN (08:19)
[2023-02-19] MEDS: pantoprazole 40mg Tablet.DR PO SCH (08:19)
[2023-02-19] MEDS: aspirin 81mg tab.chew PO SCH (08:19)
[2023-02-19] MEDS: LIDOcaine 5% patch TP SCH (08:55)
[2023-02-19] MEDS ORDERED: metoprolol tartrate 25mg tablet PO ONE (09:05)
[2023-02-19] MEDS: insulin Lispro (HumaLOG) vial - multi-dose SQ SCH (09:23)
--- NOTE | 2023-02-19 11:38 | NUR ---
Problems reprioritized. Patient report given, questions answered & plan of care reviewed with Amparo DYER.
--- NOTE | 2023-02-19 11:45 | NUR ---
Pt brought upstairs with all belongings
[2023-02-19] MEDS: JUVEN Shake w/Arg/Glut/Ca2+Bmb (Juven 19.3gm) pkt 240ml PO SCH ×2 (12:30→17:30)
--- NOTE | 2023-02-19 14:09 | NUR ---
Yamil Boone 3019- c/o SOB. asking for breathing TX. -rolf EXT [id number]
--- NOTE | 2023-02-19 18:22 | NUR ---
Problems reprioritized. Patient report given, questions answered & plan of care reviewed with Dianna NEW PRODUCT TRAINER.
[2023-02-19] MEDS: atorvastatin 10mg tablet PO SCH (20:59)
--- NOTE | 2023-02-19 21:55 | NUR ---
pt was in too much pain and refused blood sugar, previous bs 157 @ 1700. stated he isnt diabetic and doesnt need it checked.LN tried to educate patient that his blood sugars have been elevated. Pt still refused. Addendum: 02/19/23 at 2156 by Eli Leahy LVN Amended: Links added.
--- NOTE | 2023-02-20 01:59 | NUR ---
Agree with Dianna SEXTON except where I documented my physical assessment findings.
[2023-02-20 03:00] VITALS: BP 134/88
[2023-02-20] MEDS: HYDROcodone/acetaminophen 10/325mg tab PO PRN ×5 (03:18→22:00)
[2023-02-20 06:21] LABS: EOSINOPHILS % (AUTO) 0 % (0-6); HEMATOCRIT 24.4 % (42.0-52.0); HEMOGLOBIN 8.1 g/dl (14.0-17.9); MEAN CORPUSCULAR VOLUME 93.8 FL (78-98); MONOCYTES # (AUTO) 1.5 X10'3 (0-0.9)
[2023-02-20 06:24] LABS: BASOPHILS % (AUTO) 0.2 % (0-1); LYMPHOCYTES # (AUTO) 2.5 X10'3 (1.1-4.8); LYMPHOCYTES % (AUTO) 14.1 % (21-51); MEAN PLATELET VOLUME 8.3 FL (7.4-10.4); MONOCYTES % (AUTO) 8.8 % (2-12); NEUTROPHILS # (AUTO) 13.5 X10'3 (1.8-7.7); NEUTROPHILS % (AUTO) 76.9 % (42-75); PLATELET COUNT 135 X10'3 (140-440); RED BLOOD COUNT 2.61 X10'6 (4.70-6.10); RED CELL DISTRIBUTION WIDTH 14.3 % (11.5-14.5); WHITE BLOOD COUNT 17.5 X10'3 (4.5-11.0)
--- NOTE | 2023-02-20 06:26 | NUR ---
Patient in room PCU 3019. I have received report from Dianna Ware and had the opportunity to ask questions and assume patient care.
[2023-02-20 06:33] LABS: ALBUMIN 3.2 G/DL (3.4-5.0); ANION GAP 4 (8-16); BLOOD UREA NITROGEN 26 MG/DL (7-18); BUN/CREATININE RATIO 40.6 (10.0-20.0); CALCIUM 8.1 MG/DL (8.5-10.1); CHLORIDE 100 MMOL/L (99-107); CREATININE 0.64 MG/DL (0.60-1.10); GLUCOSE 161 MG/DL (70-104); POTASSIUM 4.7 MMOL/L (3.5-5.1); SODIUM 137 MMOL/L (135-145); TOTAL CARBON DIOXIDE 33.2 MMOL/L (24-32); eGFR > 90 ML/MIN
[2023-02-20 06:59] VITALS: BP 123/66
[2023-02-20] MEDS: pantoprazole 40mg Tablet.DR PO SCH (07:37)
[2023-02-20] MEDS: metoprolol tartrate 25mg tablet PO SCH ×2 (07:38→22:00)
[2023-02-20] MEDS: magnesium Cl slow-release 64mg tablet PO SCH ×2 (07:39→22:00)
[2023-02-20] MEDS: sennosides/docusate sodium tablet PO SCH ×2 (07:39→22:00)
[2023-02-20] MEDS: LIDOcaine 5% patch TP SCH (07:41)
[2023-02-20] MEDS: lactose-reduced food (Ensure Enlive) - 237ml bottle PO SCH ×3 (08:00→19:30)
[2023-02-20] MEDS: aspirin 81mg tab.chew PO SCH (08:30)
[2023-02-20 11:00] VITALS: BP 128/85
[2023-02-20 11:34] LABS: NUCLEATED RED BLOOD CELLS 9 /100WBC (0-0); TOTAL CELLS COUNTED 100
[2023-02-20 11:36] LABS: PLATELET ESTIMATE DECREASED
[2023-02-20 11:37] LABS: HYPOCHROMASIA 1+; POLYCHROMASIA 1+
[2023-02-20 11:40] LABS: STOMATOCYTES 1+
[2023-02-20] MEDS ORDERED: furosemide 40mg/4ml inj IV ONE (11:49)
[2023-02-20] MEDS ORDERED: psyllium seed 5.8 gm packet (sugar-free) PO ONE (11:49)
[2023-02-20] MEDS: JUVEN Shake w/Arg/Glut/Ca2+Bmb (Juven 19.3gm) pkt 240ml PO SCH ×2 (12:30→19:34)
[2023-02-20] MEDS ORDERED: magnesium citrate 296ml oral solution PO PRN (12:45)
[2023-02-20 15:00] VITALS: BP 138/82
--- NOTE | 2023-02-20 18:30 | NUR ---
Patient in room U 3019. I have received report from GOMEZ Lewis and had the opportunity to ask questions and assume patient care. Addendum: 02/21/23 at 0053 by Mela Mancia RN Amended: Links added.
--- NOTE | 2023-02-20 19:30 | NUR ---
sitting up in bed coughing, using pillow to splint inc. coughed up large amt sputum, swalloed, unable to eval. pt states feels better now, declines any medication. Addendum: 02/20/23 at 1947 by Mela Mancia RN Amended: Links added.
[2023-02-20 21:58] VITALS: BP 132/86
[2023-02-20] MEDS: atorvastatin 10mg tablet PO SCH (22:00)
[2023-02-20] MEDS: nicotine 14mg patch - 24hr TD SCH (22:01)
[2023-02-21] MEDS: HYDROcodone/acetaminophen 10/325mg tab PO PRN ×5 (01:52→20:04)
[2023-02-21 01:55] VITALS: BP 123/88
[2023-02-21 06:17] LABS: ALBUMIN 3.1 G/DL (3.4-5.0); ANION GAP 1 (8-16); BLOOD UREA NITROGEN 27 MG/DL (7-18); BUN/CREATININE RATIO 39.7 (10.0-20.0); CALCIUM 8.2 MG/DL (8.5-10.1); CHLORIDE 102 MMOL/L (99-107); CREATININE 0.68 MG/DL (0.60-1.10); GLUCOSE 117 MG/DL (70-104); POTASSIUM 3.7 MMOL/L (3.5-5.1); SODIUM 137 MMOL/L (135-145); TOTAL CARBON DIOXIDE 34.4 MMOL/L (24-32); eGFR > 90 ML/MIN
[2023-02-21 06:23] LABS: BASOPHILS % (AUTO) 0.2 % (0-1); EOSINOPHILS # (AUTO) 0.1 X10'3 (0-0.9); HEMOGLOBIN 8.7 g/dl (14.0-17.9); MEAN PLATELET VOLUME 7.8 FL (7.4-10.4); NEUTROPHILS # (AUTO) 9.6 X10'3 (1.8-7.7)
[2023-02-21 06:26] LABS: EOSINOPHILS % (AUTO) 0.7 % (0-6); HEMATOCRIT 26.4 % (42.0-52.0); LYMPHOCYTES # (AUTO) 4.5 X10'3 (1.1-4.8); LYMPHOCYTES % (AUTO) 28.6 % (21-51); MEAN CORPUSCULAR HEMOGLOBIN 31.1 PG (27.0-31.0); MEAN CORPUSCULAR HGB CONC 32.9 g/dL (33.0-36.5); MEAN CORPUSCULAR VOLUME 94.5 FL (78-98); MONOCYTES # (AUTO) 1.4 X10'3 (0-0.9); MONOCYTES % (AUTO) 9.1 % (2-12); NEUTROPHILS % (AUTO) 61.4 % (42-75); PLATELET COUNT 185 X10'3 (140-440); RED BLOOD COUNT 2.79 X10'6 (4.70-6.10); WHITE BLOOD COUNT 15.7 X10'3 (4.5-11.0)
[2023-02-21 06:30] VITALS: BP 140/87
--- NOTE | 2023-02-21 06:52 | NUR ---
Problems reprioritized. Patient report given, questions answered & plan of care reviewed with GOMEZ Carrasco. Addendum: 02/21/23 at 0652 by Mela Mancia RN Amended: Links added.
[2023-02-21] MEDS: nicotine 14mg patch - 24hr TD SCH (08:24)
[2023-02-21] MEDS: magnesium Cl slow-release 64mg tablet PO SCH ×2 (08:24→20:02)
[2023-02-21] MEDS: aspirin 81mg tab.chew PO SCH (08:24)
[2023-02-21] MEDS: sennosides/docusate sodium tablet PO SCH ×2 (08:24→20:03)
[2023-02-21] MEDS: pantoprazole 40mg Tablet.DR PO SCH (08:24)
[2023-02-21] MEDS: metoprolol tartrate 25mg tablet PO SCH ×2 (08:25→20:03)
[2023-02-21] MEDS: lactose-reduced food (Ensure Enlive) - 237ml bottle PO SCH ×3 (08:25→17:51)
[2023-02-21] MEDS: LIDOcaine 5% patch TP SCH (08:26)
[2023-02-21] MEDS ORDERED: HYDR-3972 PO ×2 (08:55)
[2023-02-21] MEDS ORDERED: NICO-631 TD (08:55)
[2023-02-21] MEDS ORDERED: ASPI81TA53 PO (08:55)
[2023-02-21] MEDS ORDERED: ATOR10TA PO (08:55)
[2023-02-21] MEDS ORDERED: LOP25T PO (08:55)
--- NOTE | 2023-02-21 10:10 | NUR ---
Initial: Pt admit DX CAD post-op day 5 s/p CABGx4 per EMR. PO fluctuates ~53% avg recent meals though no breakfast or lunch documentation yesterday in EMR. PO ~69% avg initial Ensure Enlives discounting inability for RN to document PO last night w/ 88% first Mathew GARCIA though refused last night per EMR. Overall, pt partially meeting estimated needs though noted no BM yet this admit 5 days likely impacting PO trends. Pt passing lots of gas and MD aware of constipation status s/p metamucil last night and receiving routine senna-s per EMR. Will continue to follow. Rec: 1. continue heart healthy diet per MD; encourage PO 2. Chocolate Ensure Enlive TIDWM; Mathew jason GARCIA- encourage PO 3. routine bowel regimen; utilize PRN bowel regimen given 5 days constipation 4. weekly wt Addendum: 02/21/23 at [address] Amended: Links added.
[2023-02-21 12:00] VITALS: BP 137/83
[2023-02-21] MEDS: JUVEN Shake w/Arg/Glut/Ca2+Bmb (Juven 19.3gm) pkt 240ml PO SCH ×2 (12:30→17:49)
[2023-02-21 14:53] LABS: HYPOCHROMASIA 1+; NUCLEATED RED BLOOD CELLS 3 /100WBC (0-0); PLATELET ESTIMATE NORMAL; TOTAL CELLS COUNTED 100
[2023-02-21 14:54] LABS: POLYCHROMASIA 1+
[2023-02-21 14:55] LABS: STOMATOCYTES FEW
[2023-02-21 17:00] VITALS: BP 123/78
[2023-02-21 18:00] VITALS: BP 140/87
[2023-02-21] MEDS: atorvastatin 10mg tablet PO SCH (20:03)
[2023-02-21] MEDS ORDERED: lactulose 20gm/30ml cup PO ONE (20:10)
[2023-02-21 22:00] VITALS: BP 120/75
[2023-02-22] MEDS: HYDROcodone/acetaminophen 10/325mg tab PO PRN ×4 (01:03→16:10)
[2023-02-22 06:26] LABS: ALBUMIN 3.1 G/DL (3.4-5.0); ANION GAP 5 (8-16); BLOOD UREA NITROGEN 21 MG/DL (7-18); BUN/CREATININE RATIO 31.3 (10.0-20.0); CALCIUM 8.4 MG/DL (8.5-10.1); CHLORIDE 99 MMOL/L (99-107); CREATININE 0.67 MG/DL (0.60-1.10); GLUCOSE 121 MG/DL (70-104); POTASSIUM 3.8 MMOL/L (3.5-5.1); SODIUM 139 MMOL/L (135-145); TOTAL CARBON DIOXIDE 34.6 MMOL/L (24-32); eGFR > 90 ML/MIN
[2023-02-22 06:30] VITALS: BP 135/77
[2023-02-22] MEDS: aspirin 81mg tab.chew PO SCH (07:05)
[2023-02-22] MEDS: nicotine 14mg patch - 24hr TD SCH (07:06)
[2023-02-22] MEDS: sennosides/docusate sodium tablet PO SCH (07:06)
[2023-02-22] MEDS: pantoprazole 40mg Tablet.DR PO SCH (07:06)
[2023-02-22] MEDS: metoprolol tartrate 25mg tablet PO SCH (07:07)
[2023-02-22] MEDS: magnesium Cl slow-release 64mg tablet PO SCH (07:13)
[2023-02-22] MEDS: LIDOcaine 5% patch TP SCH (07:14)
[2023-02-22] MEDS: lactose-reduced food (Ensure Enlive) - 237ml bottle PO SCH ×2 (08:00→13:00)
[2023-02-22] MEDS ORDERED: APIX2.5T PO (08:32)
[2023-02-22] MEDS ORDERED: FURO-150 PO (08:32)
[2023-02-22] MEDS ORDERED: HYDR-3972 PO (08:33)
[2023-02-22 09:42] LABS: EOSINOPHILS # (AUTO) 0.2 X10'3 (0-0.9); EOSINOPHILS % (AUTO) 1.2 % (0-6); HEMOGLOBIN 9.4 g/dl (14.0-17.9); LYMPHOCYTES # (AUTO) 3.1 X10'3 (1.1-4.8)
[2023-02-22 09:43] LABS: BASOPHILS % (AUTO) 0.2 % (0-1); HEMATOCRIT 28.5 % (42.0-52.0); LYMPHOCYTES % (AUTO) 22.1 % (21-51); MEAN CORPUSCULAR HEMOGLOBIN 31.1 PG (27.0-31.0); MEAN CORPUSCULAR HGB CONC 33.1 g/dL (33.0-36.5); MEAN CORPUSCULAR VOLUME 94.1 FL (78-98); MEAN PLATELET VOLUME 7.6 FL (7.4-10.4); MONOCYTES # (AUTO) 0.8 X10'3 (0-0.9); NEUTROPHILS # (AUTO) 9.9 X10'3 (1.8-7.7); NEUTROPHILS % (AUTO) 70.5 % (42-75); PLATELET COUNT 246 X10'3 (140-440); RED BLOOD COUNT 3.03 X10'6 (4.70-6.10); WHITE BLOOD COUNT 14.1 X10'3 (4.5-11.0)
[2023-02-22 09:58] LABS: ALBUMIN 3.2 G/DL (3.4-5.0); ANION GAP 4 (8-16); BLOOD UREA NITROGEN 22 MG/DL (7-18); BUN/CREATININE RATIO 29.3 (10.0-20.0); CALCIUM 8.5 MG/DL (8.5-10.1); CHLORIDE 99 MMOL/L (99-107); CREATININE 0.75 MG/DL (0.60-1.10); GLUCOSE 175 MG/DL (70-104); POTASSIUM 3.7 MMOL/L (3.5-5.1); SODIUM 135 MMOL/L (135-145); TOTAL CARBON DIOXIDE 31.8 MMOL/L (24-32); eGFR > 90 ML/MIN
[2023-02-22 10:22] LABS: NUCLEATED RED BLOOD CELLS 6 /100WBC (0-0); PLATELET ESTIMATE NORMAL; TOTAL CELLS COUNTED 100
[2023-02-22 10:23] LABS: ANISOCYTOSIS 1+; POLYCHROMASIA 1+
[2023-02-22 12:00] VITALS: BP 125/79
[2023-02-22] MEDS: JUVEN Shake w/Arg/Glut/Ca2+Bmb (Juven 19.3gm) pkt 240ml PO SCH (12:30)
--- NOTE | 2023-02-22 14:00 | NUR ---
pt with complaints of chest pain, burning, constant and new. 05/27. EKG performed per protocol and results read by lithopone charger Gary. no signifigant changes notes and patient pain has completely subsided. of note: pain began after patient consumed his lunch. jay sidhu notified and no new orders received. pt will go ahead and get discharged today
[2023-02-22 16:00] VITALS: BP 123/72
--- NOTE | 2023-02-22 17:20 | NUR ---
pt discharged to home. will have follow up with dr benítez in 2 weeks, and pmd in 4-6 weeks. pt will make all follow up appts. all new prescriptions sent to [facility] [place] and [facility] [place]. prescriptions have been confirmed. pt using sternal precautions appropriately and is able to stand from sitting on his own. room air saturations have been >93% on room air. encouraged the continued use of IS and flutter valve. all discharge instructions explained to patient with verbalizing understanding regarding plan of care. no new c/o chest pain at this time. all dressings changed and some steri strips were placed at 2 of the chest tube sites. graft on LLE with a tiny bit of an opening at the top, was reinforced with a steri strip. all questions have been answered for the patient. left via [facility]ox[facility] v[facility] patients father drove him home. of note: pt's dog today, it was expected, pt is very saddened by this but is effectively coping with this expected loss
[2023-02-23] MEDS ORDERED: POTA-206 PO (08:31)
== END 2023-02-22 17:18 | disposition home or self-care (01) | DRG 220 ==
LOC: PAS IN 02-16 11:07 → CICU 2S 02-16 19:45 → PCU 3S 02-19 11:51
PROVIDERS: ADMIT Thoracic Surgery (Cardiothoracic Vascular Surgery); ATTEND Thoracic Surgery (Cardiothoracic Vascular Surgery)
PROC: 02RF08Z Replacement of Aortic Valve with Zooplastic Tissue, Open Approach (ICD-10-PCS; 2023-02-16)
PROC: 021209W Bypass Coronary Artery, Three Arteries from Aorta with Autologous Venous Tissue, Open Approach (ICD-10-PCS; 2023-02-16)
PROC: 06BQ4ZZ Excision of Left Saphenous Vein, Percutaneous Endoscopic Approach (ICD-10-PCS; 2023-02-16)
PROC: 5A1221Z Performance of Cardiac Output, Continuous (ICD-10-PCS; 2023-02-16)
PROC: B24BZZ4 Ultrasonography of Heart with Aorta, Transesophageal (ICD-10-PCS; 2023-02-16)
PROC: 30233R1 Transfusion of Nonautologous Platelets into Peripheral Vein, Percutaneous Approach (ICD-10-PCS; 2023-02-16)
PROC: 02100Z9 Bypass Coronary Artery, One Artery from Left Internal Mammary, Open Approach (ICD-10-PCS; principal; 2023-02-16 13:52)
PROC: 5A0935A Assistance with Respiratory Ventilation, Less than 24 Consecutive Hours, High Flow/Velocity Cannula (ICD-10-PCS; 2023-02-17)
PROC: 30233K1 Transfusion of Nonautologous Frozen Plasma into Peripheral Vein, Percutaneous Approach (ICD-10-PCS; 2023-02-17)
PROC: 5A0935A Assistance with Respiratory Ventilation, Less than 24 Consecutive Hours, High Flow/Velocity Cannula (ICD-10-PCS; 2023-02-18)
PROC: 30233N1 Transfusion of Nonautologous Red Blood Cells into Peripheral Vein, Percutaneous Approach (ICD-10-PCS; 2023-02-18)
PROC: 5A0935A Assistance with Respiratory Ventilation, Less than 24 Consecutive Hours, High Flow/Velocity Cannula (ICD-10-PCS; 2023-02-19)
DX: Q23.1 Congenital insufficiency of aortic valve (principal); D62 Acute posthemorrhagic anemia; I50.22 Chronic systolic (congestive) heart failure; I25.10 Atherosclerotic heart disease of native coronary artery without angina pectoris; R00.0 Tachycardia, unspecified
CPT/HCPCS: 93312; 93325; Z7506; Z7508; 36415; 36430; 36600; 71045; 71046; 80048; 80053; 81003; 82330; 82435; 82803; 82947; 82948; 83036; 83735; 84100; 84132; 84295; 84478; 85007; 85018; 85025; 85347; 85384; 85610; 85730; 86885; 86900; 86901; 86920; 87081; 93005; 93880; 93970; 94002; 94003; 94060; 94640; 94664; 94760; 97116; 97161; 97530; A4615; A4618; A4649; A6212; A6222; A6258; A6260; A6449; A7000; A7048; C1751; G0378; J0171; J0690; J1100; J1250; J1644; J1815; J1885; J1940; J2060; J2150; J2250; J2270; J2370; J2405; J2704; J2720; J2765; J2930; J3370; J3475; J3480; J3490; J7030; J7040; J7050; J7120; P9016; P9035; P9045; P9047; P9059

== ENCOUNTER 2023-08-05 10:50 | Outpatient (CLI) | payer BC, SELFPAY ==
[~2023-08-05 10:50] MED LIST changes: -ACET-2319 PO; -ALBU8HFA PO; +ASPI-10 PO; -ASPI-803 PO; +ATOR20TA PO; +LISI1TAB53 PO; +LOP25T PO; -LORazepam 2 mg/ml vial IV ONE; -MULT-1074 PO; +PANT-47 PO; -albuterol 2.5 MG/3 ML nebule NEB ONE; -ceFAZolin inj. 3,000 MG in normal saline 100ml IV soln 100 ML IV ONE; -famotidine 20mg tablet PO ONE; -metoprolol tartrate 12.5mg (1/2 tablet) PO ONE; -mupirocin 2% nasal ointment 1gm UD NS ONE; -ringers solution, lacted 1,000 ML IV SCH; -vancomycin 1,500 MG in NS 300ml IV soln IV ONE
[2023-08-05] MEDS ORDERED: iohexol 350MG/ML 100ml bottle IV ONE (11:12)
[2023-08-05] MEDS ORDERED: iohexol 300mg/ml 100ml inj. ONE (11:13)
== END 2023-08-05 23:59 | disposition home or self-care (01) ==
LOC: RAD 10:50
PROVIDERS: ATTEND Surgery
DX: J90 Pleural effusion, not elsewhere classified (principal); K76.0 Fatty (change of) liver, not elsewhere classified; J98.11 Atelectasis; M95.4 Acquired deformity of chest and rib; M47.814 Spondylosis without myelopathy or radiculopathy, thoracic region; Z98.890 Other specified postprocedural states
CPT/HCPCS: 71260; J3490; Q9967

== ENCOUNTER 2023-09-02 06:55 | Day surgery (SDC) | payer BC, SELFPAY ==
[2023-08-30 12:26] LABS: BASOPHILS # (AUTO) 0.1 X10'3 (0-0.2); BASOPHILS % (AUTO) 0.8 % (0-1); EOSINOPHILS # (AUTO) 0.2 X10'3 (0-0.9); EOSINOPHILS % (AUTO) 2.4 % (0-6); LYMPHOCYTES # (AUTO) 2.7 X10'3 (1.1-4.8); LYMPHOCYTES % (AUTO) 30.5 % (21-51); MEAN CORPUSCULAR HEMOGLOBIN 29.4 PG (27.0-31.0); MEAN CORPUSCULAR HGB CONC 32.8 g/dL (33.0-36.5); MEAN CORPUSCULAR VOLUME 89.5 FL (78-98); MEAN PLATELET VOLUME 7.3 FL (7.4-10.4); MONOCYTES # (AUTO) 0.7 X10'3 (0-0.9); MONOCYTES % (AUTO) 8.2 % (2-12); NEUTROPHILS % (AUTO) 58.1 % (42-75); PRE OP HEMATOCRIT 48.1 % (42.0-52.0); PRE OP HEMOGLOBIN 15.8 g/dL (14.0-17.9); PRE OP PLATELET COUNT 342 X10'3 (140-440); PRE OP WHITE BLOOD COUNT 8.7 10'3 (4.8-10.8); RED BLOOD COUNT 5.37 X10'6 (4.70-6.10); RED CELL DISTRIBUTION WIDTH 15.7 % (11.5-14.5)
[2023-08-30 12:36] LABS: PRE OP PROTIME 10.4 SECONDS (9.0-12.0)
[2023-08-30 12:38] LABS: ALBUMIN/GLOBULIN RATIO 1.1 (1.1-1.5); ALKALINE PHOSPHATASE 90 IU/L (46-116); BLOOD UREA NITROGEN 14 MG/DL (7-18); BUN/CREATININE RATIO 14.9 (10.0-20.0); CALCIUM 9.1 MG/DL (8.5-10.1); CHLORIDE 99 MMOL/L (99-107); CREATININE 0.94 MG/DL (0.60-1.10); PRE OP ALT 48 U/L (30-65); PRE OP ANION GAP 9 (8-16); PRE OP AST 32 U/L (10-37); PRE OP BILIRUB, TOTAL 0.3 MG/DL (0.0-1.0); PRE OP GLUCOSE 117 MG/DL (70-104); PRE OP POTASSIUM 3.9 MMOL/L (3.4-5.1); PRE OP SODIUM 136 MMOL/L (135-145); TOTAL PROTEIN 7.8 G/DL (6.4-8.2); eGFR 83 ML/MIN
[~2023-09-02] VITALS: Ht 185.4 cm; Wt 121.9 kg
[~2023-09-02 06:55] MED LIST changes: -ATOR20TA PO; +DOCUMENT DATE & TIME OF BETA-BLOCKER PO ONE; +ceFAZolin inj. 3,000 MG in normal saline 100ml IV soln 100 ML IV ONE; +famotidine 20mg tablet PO ONE; +ringers solution, lacted 1,000 ML IV SCH
[2023-09-02 07:50] VITALS: BP 114/60; PULSE 78; RESP 16; TEMP 97.3; O2SAT 78; O2SAT 95
--- NOTE | 2023-09-02 11:09 | NUR ---
DR PEREIRA CAME BY AND STATED THAT RECENT IMAGING SHOWS THE PATIENT IS HAVING AN ISSUE POST OP FROM HIS SURGERY WITH DR. FAJARDO. DR PEREIRA IS CANCELING THE SURGERY AND HIS OFFICE WILL BE REFERRING THE PATIENT TO DR FAJARDO. DR. FAJARDO AWARE.
--- NOTE | 2023-09-02 11:11 | NUR ---
IV DC'D AND PATIENT IS EDUCATED N HIS CURRENT SITUATION.
== END 2023-09-02 11:11 | disposition home or self-care (01) ==
LOC: PAS 06:55
PROVIDERS: ATTEND Surgery
DX: K43.2 Incisional hernia without obstruction or gangrene (principal); Z53.8 Procedure and treatment not carried out for other reasons; J44.9 Chronic obstructive pulmonary disease, unspecified; I10 Essential (primary) hypertension; I25.2 Old myocardial infarction; I25.10 Atherosclerotic heart disease of native coronary artery without angina pectoris; E78.5 Hyperlipidemia, unspecified; G43.909 Migraine, unspecified, not intractable, without status migrainosus; M19.90 Unspecified osteoarthritis, unspecified site; Z79.01 Long term (current) use of anticoagulants; Z79.899 Other long term (current) drug therapy; Z87.891 Personal history of nicotine dependence; Z95.1 Presence of aortocoronary bypass graft; Z95.2 Presence of prosthetic heart valve; Z87.442 Personal history of urinary calculi
CPT/HCPCS: 36415; 71046; 71250; 74176; 80053; 82948; 85025; 85610; 85730; 86885; 86900; 86901; 93005; J0690; J3490; J7120

== ENCOUNTER 2023-09-29 09:31 | Outpatient (CLI) | payer BC ==
[~2023-09-29 09:31] MED LIST changes: -DOCUMENT DATE & TIME OF BETA-BLOCKER PO ONE; -ceFAZolin inj. 3,000 MG in normal saline 100ml IV soln 100 ML IV ONE; -famotidine 20mg tablet PO ONE; -ringers solution, lacted 1,000 ML IV SCH
[2023-09-29] MEDS ORDERED: IODIXANOL 320 MG/ML INFUS..BTL 100ML IV ONE (09:54)
[2023-09-29] MEDS ORDERED: nitroGLYCERIN 0.4mg SUBLingual tab SL ONE (10:48)
[2023-10-07] MEDS ORDERED: MULT-1106 PO (13:15)
[2023-10-07] MEDS ORDERED: LOSA1TAB39 PO (13:15)
== END 2023-09-29 23:59 | disposition home or self-care (01) ==
LOC: RAD 09:31
PROVIDERS: ATTEND Internal Medicine Interventional Cardiology
DX: I25.810 Atherosclerosis of coronary artery bypass graft(s) without angina pectoris (principal); R01.1 Cardiac murmur, unspecified; I35.0 Nonrheumatic aortic (valve) stenosis; Z95.1 Presence of aortocoronary bypass graft
CPT/HCPCS: 75573; J3490; Q9967

== ENCOUNTER 2023-10-14 12:09 | Inpatient (IN) | payer BC ==
[2023-10-07 14:14] LABS: BASOPHILS # (AUTO) 0.1 X10'3 (0-0.2); BASOPHILS % (AUTO) 0.7 % (0-1); EOSINOPHILS # (AUTO) 0.3 X10'3 (0-0.9); EOSINOPHILS % (AUTO) 3.2 % (0-6); LYMPHOCYTES # (AUTO) 2.9 X10'3 (1.1-4.8); LYMPHOCYTES % (AUTO) 30.3 % (21-51); MEAN CORPUSCULAR HGB CONC 33.4 g/dL (33.0-36.5); MEAN CORPUSCULAR VOLUME 89.9 FL (78-98); MEAN PLATELET VOLUME 7.8 FL (7.4-10.4); MONOCYTES # (AUTO) 0.9 X10'3 (0-0.9); MONOCYTES % (AUTO) 8.8 % (2-12); NEUTROPHILS # (AUTO) 5.5 X10'3 (1.8-7.7); PRE OP HEMATOCRIT 46.7 % (42.0-52.0); PRE OP HEMOGLOBIN 15.6 g/dL (14.0-17.9); PRE OP PLATELET COUNT 332 X10'3 (140-440); PRE OP WHITE BLOOD COUNT 9.7 10'3 (4.8-10.8); RED BLOOD COUNT 5.19 X10'6 (4.70-6.10); RED CELL DISTRIBUTION WIDTH 13.9 % (11.5-14.5)
[2023-10-07 14:26] LABS: ALBUMIN 3.9 G/DL (3.4-5.0); ALBUMIN/GLOBULIN RATIO 0.9 (1.1-1.5); ALKALINE PHOSPHATASE 98 IU/L (46-116); BLOOD UREA NITROGEN 17 MG/DL (7-18); BUN/CREATININE RATIO 19.8 (10.0-20.0); CALCIUM 8.9 MG/DL (8.5-10.1); CHLORIDE 98 MMOL/L (99-107); CREATININE 0.86 MG/DL (0.60-1.10); PRE OP ALT 43 U/L (30-65); PRE OP ANION GAP 8 (8-16); PRE OP AST 25 U/L (10-37); PRE OP BILIRUB, TOTAL 0.3 MG/DL (0.0-1.0); PRE OP GLUCOSE 113 MG/DL (70-104); PRE OP POTASSIUM 3.7 MMOL/L (3.4-5.1); PRE OP SODIUM 133 MMOL/L (135-145); TOTAL CARBON DIOXIDE 27.4 MMOL/L (24-32); TOTAL PROTEIN 8.3 G/DL (6.4-8.2); eGFR > 90 ML/MIN
[2023-10-14] VITALS (20 sets, daily range): BP systolic 128–173; BP diastolic 62–110; PULSE 73–104; RESP 7–22; TEMP 97.6–98; O2SAT 91–98
[~2023-10-14] VITALS: Ht 185.4 cm; Wt 122.4 kg
[~2023-10-14 12:09] MED LIST changes: +DOCUMENT DATE & TIME OF BETA-BLOCKER PO ONE; -LISI1TAB53 PO; +LOSA1TAB39 PO; +MULT-1106 PO; +ceFAZolin inj. 3,000 MG in normal saline 100ml IV soln 100 ML IV ONE; +famotidine 20mg tablet PO ONE; +metoprolol tartrate 12.5mg (1/2 tablet) PO ONE; +mupirocin 2% nasal ointment 1gm UD NS ONE; +ringers solution, lacted 1,000 ML IV SCH; +vancomycin 1,500 MG in NS 300ml IV soln IV ONE
[2023-10-14] MEDS ORDERED: BUPIVAcaine/PF 5 mg/ml 10ml ONE (14:52)
[2023-10-14] MEDS ORDERED: LIDOcaine 1% (10mg/ml)w/preservative inj. 20ml MDV ONE (14:53)
[2023-10-14] MEDS ORDERED: LIDOcaine 1% 30ml preserv. free vial ONE (14:56)
[2023-10-14] MEDS ORDERED: morphine 4 MG/ML inj SYRINge IV PRN (15:10)
[2023-10-14] MEDS ORDERED: proCHLORperazine 10 MG/2 ml inj IV PRN (15:10)
[2023-10-14] MEDS ORDERED: morphine 2 MG/ML inj. syringe IV PRN ×2 (15:10→17:00)
[2023-10-14] MEDS ORDERED: enalaprilat dihydrate 2.5mg/2ml vial IV PRN (15:10)
[2023-10-14] MEDS ORDERED: labetalol 20mg/4ml (5mg/ml) syringe IV PRN (15:10)
[2023-10-14] MEDS ORDERED: ringers solution, lacted 1,000 ML IV SCH (15:10)
[2023-10-14] MEDS ORDERED: ondansetron/PF 4mg/2ml inj IV PRN (15:10)
[2023-10-14] MEDS ORDERED: meperidine/PF 25mg/ml syringe IV PRN ×3 (15:10)
[2023-10-14] MEDS ORDERED: midazolam 1 mg/ML 2ml injection ONE (15:27)
[2023-10-14] MEDS ORDERED: fentaNYL /PF 50mcg/ml 5ml ampule ONE (15:27)
[2023-10-14] MEDS ORDERED: rocuronium 10mg/ml inj IV ONE (15:30)
[2023-10-14] MEDS ORDERED: propofol inj 20 ML IV ONE (15:42)
[2023-10-14] MEDS ORDERED: ceFAZolin 1000mg inj ONE (16:19)
[2023-10-14] MEDS ORDERED: morphine /PF 1mg/ml 10ml inj. ONE (16:51)
[2023-10-14] MEDS ORDERED: LIDOcaine 2% (20mg/ml) 5ml vial ONE (16:54)
[2023-10-14] MEDS ORDERED: magnesium 2GM in 50ml NS 50 ML IV PRN (17:00)
[2023-10-14] MEDS ORDERED: magnesium hydroxide 30ml (MOM) UD suspension PO PRN (17:00)
[2023-10-14] MEDS ORDERED: acetaminophen 325mg tablet PO PRN (17:00)
[2023-10-14] MEDS ORDERED: HYDROcodone/acetaminophen 10/325mg tab PO PRN ×2 (17:00)
[2023-10-14] MEDS ORDERED: pantoprazole 40mg Tablet.DR PO PRN (17:00)
[2023-10-14] MEDS ORDERED: potassium Cl 20 mEq SR tablet PO PRN (17:00)
[2023-10-14] MEDS ORDERED: potassium Cl 40MEQ/270ML bag 250 ML IV PRN (17:00)
[2023-10-14] MEDS ORDERED: potassium CL 10mEq/100ml bag 100 ML IV PRN (17:00)
[2023-10-14] MEDS ORDERED: magnesium 4gm in 100ml NS 100 ML IV PRN (17:00)
[2023-10-14] MEDS ORDERED: potassium Cl 20mEq/100mL bag 100 ML IV PRN (17:00)
[2023-10-14] MEDS ORDERED: potassium Cl 40MEQ/1/2NS 520ml 520 ML IV PRN (17:00)
[2023-10-14] MEDS ORDERED: acetaminophen 1,000mg/100ml IV 100 ML IV ONE (17:01)
[2023-10-14] MEDS ORDERED: ketorolac trometh. 30mg/ml inj. IV STA (17:22)
[2023-10-14] MEDS: sennosides/docusate sodium tablet PO SCH (20:00)
[2023-10-14] MEDS: ketorolac tromethamine 15mg/ml inj. IV SCH (22:57)
[2023-10-14] MEDS: metoprolol tartrate 25mg tablet PO SCH (23:05)
[2023-10-14] MEDS: mupirocin 2% nasal ointment 1gm UD NS SCH (23:05)
[2023-10-14] MEDS: ceFAZolin/D5W- 1GM premix 50 ML IV SCH (23:11)
[2023-10-15] MEDS: morphine 4 MG/ML inj SYRINge IV PRN ×2 (00:48→04:57)
[2023-10-15 02:00] VITALS: BP 87/49; PULSE 90; RESP 19; TEMP 97.6; O2SAT 95
[2023-10-15] MEDS: ketorolac tromethamine 15mg/ml inj. IV SCH ×2 (02:02→07:54)
[2023-10-15 02:30] VITALS: BP 112/60
[2023-10-15 07:30] VITALS: BP 111/69; PULSE 74; RESP 14; TEMP 98.2; O2SAT 95
[2023-10-15 07:45] LABS: BASOPHILS % (AUTO) 0 % (0-1); EOSINOPHILS % (AUTO) 0 % (0-6); HEMATOCRIT 41.7 % (42.0-52.0); HEMOGLOBIN 14.3 g/dl (14.0-17.9); LYMPHOCYTES # (AUTO) 1.2 X10'3 (1.1-4.8); LYMPHOCYTES % (AUTO) 12.5 % (21-51); MEAN CORPUSCULAR HEMOGLOBIN 30.7 PG (27.0-31.0); MEAN CORPUSCULAR HGB CONC 34.2 g/dL (33.0-36.5); MEAN CORPUSCULAR VOLUME 89.7 FL (78-98); MEAN PLATELET VOLUME 7.5 FL (7.4-10.4); MONOCYTES # (AUTO) 0.4 X10'3 (0-0.9); MONOCYTES % (AUTO) 3.7 % (2-12); NEUTROPHILS # (AUTO) 8.1 X10'3 (1.8-7.7); NEUTROPHILS % (AUTO) 83.8 % (42-75); PLATELET COUNT 299 X10'3 (140-440); RED BLOOD COUNT 4.65 X10'6 (4.70-6.10); RED CELL DISTRIBUTION WIDTH 13.6 % (11.5-14.5); WHITE BLOOD COUNT 9.6 X10'3 (4.5-11.0)
[2023-10-15] MEDS: mupirocin 2% nasal ointment 1gm UD NS SCH (07:54)
[2023-10-15] MEDS: ceFAZolin/D5W- 1GM premix 50 ML IV SCH (07:54)
[2023-10-15 07:55] VITALS: BP_SYST 116; PULSE 64
[2023-10-15] MEDS: metoprolol tartrate 25mg tablet PO SCH (07:55)
[2023-10-15] MEDS: sennosides/docusate sodium tablet PO SCH (07:55)
[2023-10-15 07:58] LABS: ALANINE AMINOTRANSFERASE 34 U/L (12-78); ALBUMIN 3.5 G/DL (3.4-5.0); ALBUMIN/GLOBULIN RATIO 0.9 (1.1-1.5); ALKALINE PHOSPHATASE 63 IU/L (46-116); ANION GAP 9 (8-16); ASPARTATE AMINO TRANSFERASE 23 U/L (10-37); BILIRUBIN,TOTAL 0.3 MG/DL (0.1-1.0); BLOOD UREA NITROGEN 15 MG/DL (7-18); BUN/CREATININE RATIO 16.1 (10.0-20.0); CALCIUM 8.9 MG/DL (8.5-10.1); CHLORIDE 99 MMOL/L (99-107); CREATININE 0.93 MG/DL (0.60-1.10); GLUCOSE 157 MG/DL (70-104); MAGNESIUM 1.8 MG/DL (1.5-2.4); POTASSIUM 4.3 MMOL/L (3.5-5.1); SODIUM 135 MMOL/L (135-145); TOTAL CARBON DIOXIDE 26.8 MMOL/L (24-32); TOTAL PROTEIN 7.6 G/DL (6.4-8.2); eCRCL 99 ML/MIN; eGFR 84 ML/MIN
[2023-10-15 08:00] VITALS: RESP 14; O2SAT 95
[2023-10-15] MEDS ORDERED: multivitamins, therapeutics tablet PO SCH (08:00)
[2023-10-15] MEDS ORDERED: HYDROchlorothiazide 25mg tablet PO SCH (08:00)
[2023-10-15] MEDS ORDERED: losartan 50mg tablet PO SCH (08:00)
[2023-10-15] MEDS ORDERED: HYDR-3972 PO (09:47)
[2023-10-16] MEDS ORDERED: pantoprazole 40mg Tablet.DR PO SCH (07:30)
[2023-10-16] MEDS ORDERED: aspirin 325mg tablet PO SCH (08:00)
== END 2023-10-15 11:50 | disposition home or self-care (01) | DRG 941 ==
LOC: PAS 12:09 → PCU 3S 17:50
PROVIDERS: ADMIT Thoracic Surgery (Cardiothoracic Vascular Surgery); ATTEND Thoracic Surgery (Cardiothoracic Vascular Surgery)
PROC: 0WU Anatomical Regions, General, Supplement (ICD-10-PCS; principal; 2023-10-14 15:30)
DX: G89.12 Acute post-thoracotomy pain (principal); E78.5 Hyperlipidemia, unspecified; I10 Essential (primary) hypertension; I25.10 Atherosclerotic heart disease of native coronary artery without angina pectoris; I35.0 Nonrheumatic aortic (valve) stenosis; J44.9 Chronic obstructive pulmonary disease, unspecified; K21.9 Gastro-esophageal reflux disease without esophagitis; K43.9 Ventral hernia without obstruction or gangrene; Z95.1 Presence of aortocoronary bypass graft; Z95.3 Presence of xenogenic heart valve
CPT/HCPCS: Z7506; Z7508; 36415; 71045; 80053; 82948; 83735; 85025; 97116; 97161; 97530; A4615; A4618; A6449; A7000; C1781; G0378; J0131; J0690; J1885; J2175; J2250; J2270; J2274; J2704; J3010; J3370; J3490; J7030; J7040; J7050; J7120

== ENCOUNTER → 2024-03-31 | Outpatient (CLI) | payer BC, SELFPAY ==
[~2024-03-31] MED LIST changes: -DOCUMENT DATE & TIME OF BETA-BLOCKER PO ONE; -ceFAZolin inj. 3,000 MG in normal saline 100ml IV soln 100 ML IV ONE; -famotidine 20mg tablet PO ONE; +iohexol 300mg/ml 100ml inj. ONE; -metoprolol tartrate 12.5mg (1/2 tablet) PO ONE; -mupirocin 2% nasal ointment 1gm UD NS ONE; -ringers solution, lacted 1,000 ML IV SCH; -vancomycin 1,500 MG in NS 300ml IV soln IV ONE
== END | disposition home or self-care (01) ==
LOC: RAD 13:24
PROVIDERS: ATTEND Thoracic Surgery (Cardiothoracic Vascular Surgery)
DX: K43.2 Incisional hernia without obstruction or gangrene (principal); J98.11 Atelectasis; K76.0 Fatty (change of) liver, not elsewhere classified; K82.8 Other specified diseases of gallbladder; I70.0 Atherosclerosis of aorta; K57.30 Diverticulosis of large intestine without perforation or abscess without bleeding; K42.9 Umbilical hernia without obstruction or gangrene
CPT/HCPCS: 74177; J3490; Q9967

== ENCOUNTER 2024-06-05 06:42 | Observation (INO) | payer BC, SELFPAY ==
[2024-06-01 15:51] LABS: BASOPHILS # (AUTO) 0.1 X10'3 (0-0.2); BASOPHILS % (AUTO) 0.7 % (0-1); EOSINOPHILS # (AUTO) 0.2 X10'3 (0-0.9); EOSINOPHILS % (AUTO) 1.9 % (0-6); LYMPHOCYTES # (AUTO) 2.7 X10'3 (1.1-4.8); LYMPHOCYTES % (AUTO) 31.7 % (21-51); MEAN CORPUSCULAR HEMOGLOBIN 30.2 PG (27.0-31.0); MEAN CORPUSCULAR HGB CONC 33.5 g/dL (33.0-36.5); MEAN CORPUSCULAR VOLUME 90.2 FL (78-98); MEAN PLATELET VOLUME 7.3 FL (7.4-10.4); MONOCYTES # (AUTO) 0.6 X10'3 (0-0.9); MONOCYTES % (AUTO) 7.1 % (2-12); NEUTROPHILS % (AUTO) 58.6 % (42-75); PRE OP HEMATOCRIT 45.8 % (42.0-52.0); PRE OP HEMOGLOBIN 15.3 g/dL (14.0-17.9); PRE OP PLATELET COUNT 300 X10'3 (140-440); PRE OP WHITE BLOOD COUNT 8.4 10'3 (4.8-10.8); RED BLOOD COUNT 5.07 X10'6 (4.70-6.10); RED CELL DISTRIBUTION WIDTH 14.6 % (11.5-14.5)
[2024-06-01 16:11] LABS: PRE OP PROTIME 10.5 SECONDS (9.0-12.0)
[2024-06-01 16:32] LABS: ALBUMIN 3.9 G/DL (3.4-5.0); ALKALINE PHOSPHATASE 82 IU/L (46-116); BLOOD UREA NITROGEN 16 MG/DL (7-18); BUN/CREATININE RATIO 18.6 (10.0-20.0); CALCIUM 8.8 MG/DL (8.5-10.1); CHLORIDE 102 MMOL/L (99-107); CREATININE 0.86 MG/DL (0.60-1.10); PRE OP ALT 39 U/L (30-65); PRE OP ANION GAP 11 (8-16); PRE OP AST 14 U/L (10-37); PRE OP BILIRUB, TOTAL 0.2 MG/DL (0.0-1.0); PRE OP GLUCOSE 127 MG/DL (70-104); PRE OP POTASSIUM 4.1 MMOL/L (3.4-5.1); PRE OP SODIUM 138 MMOL/L (135-145); TOTAL CARBON DIOXIDE 25.1 MMOL/L (24-32); eGFR > 90 ML/MIN
[2024-06-05] VITALS (29 sets, daily range): BP systolic 121–169; BP diastolic 53–99; PULSE 53–106; RESP 9–18; TEMP 97–97.7; O2SAT 93–100
[~2024-06-05] VITALS: Ht 185.4 cm; Wt 123.8 kg
[2024-06-05] MEDS: DOCUMENT DATE & TIME OF BETA-BLOCKER PO ONE (05:30)
[~2024-06-05 06:42] MED LIST changes: -ASPI-10 PO; +ASPI-1139 PO; -LOSA1TAB39 PO; -MULT-1106 PO; -PANT-47 PO; -iohexol 300mg/ml 100ml inj. ONE
[2024-06-05] MEDS: famotidine 20mg tablet PO ONE (07:30)
[2024-06-05] MEDS: Cefazolin 3 GM/100ML NS IVPB 100 ML IV ONE (07:30)
[2024-06-05] MEDS: ringers solution, lacted 1,000 ML IV SCH ×2 (07:30→09:50)
[2024-06-05] MEDS: vancomycin 1,500 MG in NS 300ml IV soln IV ONE (07:31)
[2024-06-05] MEDS ORDERED: sevoflurane 250ml liquid IH ONE (08:20)
[2024-06-05] MEDS ORDERED: midazolam 1 mg/ML 2ml injection ONE (08:25)
[2024-06-05] MEDS ORDERED: fentaNYL /PF 50mcg/ml 5ml ampule ONE (08:25)
[2024-06-05] MEDS: BUPIVAcaine 0.5% inj/PF 30 ML ONE (08:31)
[2024-06-05] MEDS ORDERED: LIDOcaine 2% (20mg/ml) 5ml vial ONE (08:32)
[2024-06-05] MEDS ORDERED: propofol inj 20 ML IV ONE (08:32)
[2024-06-05] MEDS: LIDOcaine 1% 30ml preserv. free vial ONE (08:52)
[2024-06-05] MEDS: BUPIVAcaine 2.5mg/ml inj 50ml vial (contains preservative) ONE (08:52)
[2024-06-05] MEDS ORDERED: rocuronium 10mg/ml inj IV ONE (09:21)
[2024-06-05] MEDS ORDERED: ondansetron/PF 4mg/2ml inj ONE (09:21)
[2024-06-05] MEDS ORDERED: dexamethasone sod phosphate 4mg/ml inj. ONE (09:21)
[2024-06-05] MEDS ORDERED: meperidine/PF 25mg/ml syringe IV PRN ×2 (09:50)
[2024-06-05] MEDS ORDERED: labetalol 20mg/4ml (5mg/ml) syringe IV PRN (09:50)
[2024-06-05] MEDS ORDERED: morphine 2 MG/ML inj. syringe IV PRN (09:50)
[2024-06-05] MEDS ORDERED: proCHLORperazine 10 MG/2 ml inj IV PRN (09:50)
[2024-06-05] MEDS ORDERED: morphine 4 MG/ML inj SYRINge IV PRN (09:50)
[2024-06-05] MEDS ORDERED: ondansetron/PF 4mg/2ml inj IV PRN ×2 (09:50→10:00)
[2024-06-05] MEDS ORDERED: enalaprilat dihydrate 2.5mg/2ml vial IV PRN (09:50)
[2024-06-05] MEDS ORDERED: naloxone 0.4 mg/ml inj IV PRN (10:00)
[2024-06-05] MEDS ORDERED: HYDROcodone/acetaminophen 5mg/325mg tablet PO PRN (10:00)
[2024-06-05] MEDS: meperidine/PF 25mg/ml syringe IV PRN (10:02)
[2024-06-05] MEDS ORDERED: HYDROcodone/acetaminophen 10/325mg tab PO PRN (10:10)
[2024-06-05] MEDS: acetaminophen 1,000mg/100ml IV 100 ML IV ONE (10:21)
[2024-06-05] MEDS: nicotine 14mg patch - 24hr TD SCH (11:21)
[2024-06-05] MEDS: HYDROcodone/acetaminophen 10/325mg tab PO PRN (12:08)
[2024-06-05] MEDS ORDERED: acetaminophen 1,000mg/100ml IV 100 ML IV SCH (14:00)
[2024-06-05] MEDS: ceFAZolin inj. 1,000 MG in dextrose 5%-water 50ml 50 ML IV SCH (16:44)
[2024-06-05] MEDS: metoprolol tartrate 25mg tablet PO SCH (19:19)
[2024-06-05] MEDS: heparin, porcine 5000 units/ml vial SQ SCH (19:21)
[2024-06-05] MEDS: Melatonin 3mg tablet PO SCH (21:02)
[2024-06-06 02:00] VITALS: BP 145/78; PULSE 80; RESP 16; TEMP 97.9; O2SAT 94
[2024-06-06 06:00] VITALS: BP 138/85; PULSE 74; RESP 18; TEMP 96.8; O2SAT 97
[2024-06-06 07:55] LABS: BASOPHILS % (AUTO) 0.1 % (0-1); EOSINOPHILS % (AUTO) 0.1 % (0-6); HEMOGLOBIN 14.5 g/dl (14.0-17.9); LYMPHOCYTES # (AUTO) 1.9 X10'3 (1.1-4.8); LYMPHOCYTES % (AUTO) 18.9 % (21-51); MEAN CORPUSCULAR HEMOGLOBIN 29.9 PG (27.0-31.0); MEAN CORPUSCULAR HGB CONC 32.9 g/dL (33.0-36.5); MEAN CORPUSCULAR VOLUME 90.8 FL (78-98); MEAN PLATELET VOLUME 7.7 FL (7.4-10.4); MONOCYTES # (AUTO) 0.6 X10'3 (0-0.9); MONOCYTES % (AUTO) 6.2 % (2-12); NEUTROPHILS # (AUTO) 7.5 X10'3 (1.8-7.7); NEUTROPHILS % (AUTO) 74.7 % (42-75); PLATELET COUNT 273 X10'3 (140-440); RED BLOOD COUNT 4.84 X10'6 (4.70-6.10); RED CELL DISTRIBUTION WIDTH 14.4 % (11.5-14.5); WHITE BLOOD COUNT 10.1 X10'3 (4.5-11.0)
[2024-06-06 08:13] LABS: ALBUMIN 3.4 G/DL (3.4-5.0); ANION GAP 8 (8-16); BLOOD UREA NITROGEN 11 MG/DL (7-18); BUN/CREATININE RATIO 15.3 (10.0-20.0); CALCIUM 8.9 MG/DL (8.5-10.1); CHLORIDE 102 MMOL/L (99-107); CREATININE 0.72 MG/DL (0.60-1.10); GLUCOSE 128 MG/DL (70-104); POTASSIUM 4.1 MMOL/L (3.5-5.1); SODIUM 138 MMOL/L (135-145); TOTAL CARBON DIOXIDE 27.7 MMOL/L (24-32); eCRCL 128 ML/MIN; eGFR > 90 ML/MIN
[2024-06-06 08:51] VITALS: BP_SYST 138; PULSE 88
[2024-06-06] MEDS: aspirin/acetaminophen/caffeine tablet PO SCH (08:51)
[2024-06-06 08:55] VITALS: RESP 18
[2024-06-06 09:50] VITALS: RESP 16
== END 2024-06-06 11:25 | disposition home or self-care (01) ==
LOC: PAS 06:42 → PACU 10:06 → ORTHO 4S 15:41
PROVIDERS: ADMIT Thoracic Surgery (Cardiothoracic Vascular Surgery); ATTEND Thoracic Surgery (Cardiothoracic Vascular Surgery)
DX: E65 Localized adiposity (principal); K43.2 Incisional hernia without obstruction or gangrene; I10 Essential (primary) hypertension; I25.2 Old myocardial infarction; I25.10 Atherosclerotic heart disease of native coronary artery without angina pectoris; Z86.2 Personal history of diseases of the blood and blood-forming organs and certain disorders involving the immune mechanism; Z79.82 Long term (current) use of aspirin; Z95.1 Presence of aortocoronary bypass graft
CPT/HCPCS: 22902; 36415; 80048; 80053; 82948; 85025; 85610; 85730; 93005; 96365; 96366; 96367; 96375; A6258; G0378; J0131; J0690; J1100; J2175; J2250; J2405; J2704; J2710; J3010; J3370; J3490; J7060; J7120; A4215; A4615; A4618; A6402; A6449; A7000